=== PATIENT | female | born 1975 | race African-American/Black ===

== ENCOUNTER 2019-06-29 21:50 | Inpatient (IN) | payer OTHER ==
--- NOTE | 2019-06-29 22:12 | PDOC ---
History of Present Illness - History of Present Illness Initial Comments: Ms. Connor is a 43 y/o female with PMH of HTN, s/p hysterectomy 2 weeks ago for fibroids, presenting today with fever of 103, chills, nausea, diffuse abdominal pain worse in the LUQ that started 1 day ago, with lower back pain when walking for the past 3 days, as well as dysuria for 1 week. Difficulty describing the type of pain. Denies bleeding, purulent discharge, or opening of incision. No other past surgeries. Two children born via vaginal delivery. DIRECTOR OF STUDENT FINANCIAL AID: Dr. Crowe, [facility] <Ascencion Gonzalez - Last Filed: 06/30/19 23:38> <Noemy Reyes - Last Filed: 07/02/19 16:03> - General Chief Complaint: Pain Stated Complaint: ABDOMINAL PAIN Time Seen by Provider: 06/29/19 21:53 Past History - Past Medical History COPD: No HTN: Yes Hypercholesterolemia: Yes - Suicide/Smoking/Psychosocial Hx Smoking History: Never smoked Have you smoked in the past 12 months: No Information on smoking cessation initiated: No Hx Alcohol Use: No Drug/Substance Use Hx: No <Ascencion Gonzalez - Last Filed: 06/30/19 23:38> <Noemy Reyes - Last Filed: 07/02/19 16:03> - Past Medical History Allergies/Adverse Reactions: Allergies Allergy/AdvReac Type Severity Reaction Status Date / Time No Known Allergies Allergy Verified 06/29/19 22:06 Home Medications: Ambulatory Orders Amlodipine Besylate [Norvasc -] 10 mg PO DAILY 06/30/19 Ferrous Sulfate 325 mg PO DAILY 06/30/19 Furosemide 40 mg PO DAILY 06/30/19 Review of Systems - Review of Systems Comments:: GENERAL/CONSTITUTIONAL: Reports fever and chills. HEAD, EYES, EARS, NOSE AND THROAT: No change in vision. No change in hearing. No sore throat. CARDIOVASCULAR: No chest pain or shortness of breath_ RESPIRATORY: Denies cough, hemoptysis_ GASTROINTESTINAL: Reports nausea. Denies vomiting. Denies diarrhea/ constipation. GENITOURINARY: Reports dysuria. Denies hematuria. MUSCULOSKELETAL: No joint or muscle swelling or pain. No neck or back pain._ SKIN: No rash_ NEUROLOGIC: No headache, vertigo, loss of consciousness. ENDOCRINE: No increased thirst. No abnormal weight change_ HEMATOLOGIC/LYMPHATIC: No anemia, easy bleeding, or history of blood clots._ ALLERGIC/IMMUNOLOGIC: No hives or skin allergy._ <Ascencion Gonzalez - Last Filed: 06/30/19 23:38> *Physical Exam - Vital Signs Last Vital Signs Temp Pulse Resp BP Pulse Ox 103.9 F H 96 H 16 148/85 100 06/29/19 21:50 06/29/19 21:50 06/29/19 21:50 06/29/19 21:50 06/29/19 21:50 - Physical Exam Comments: GENERAL: Awake, alert, and oriented to person/place/time, in no acute distress. HEAD: No signs of trauma, normocephalic, atraumatic _ EYES: PERRLA, EOMI, sclera anicteric, conjunctiva clear. ENT: Hearing grossly normal, nares patent, oropharynx clear without exudates. No uvular deviation. Moist mucosa. NECK: Normal ROM, supple, no lymphadenopathy, JVD, or masses. LUNGS: No distress, speaks in full sentences, clear to auscultation bilaterally. HEART: Regular rate and rhythm, normal S1 and S2, no murmurs appreciated, peripheral pulses normal and equal bilaterally._ ABDOMEN: Soft, TTP diffusely worse in the LUQ. Incision intact, no signs of bleeding or purulent discharge, erythema. BACK: No TTP lower midline back. EXTREMITIES: Normal inspection, Normal range of motion, no edema. No clubbing or cyanosis. NEUROLOGICAL: CN II-XII grossly intact. Cerebellar testing intact. SKIN: Warm to the touch, Dry, normal turgor, no rashes or lesions noted_ <Ascencion Gonzalez - Last Filed: 06/30/19 23:38> - Vital Signs Last Vital Signs Temp Pulse Resp BP Pulse Ox 99.1 F 75 18 133/87 99 07/02/19 14:48 07/02/19 14:48 07/02/19 14:48 07/02/19 14:48 07/02/19 09:00 <Noemy Reyes - Last Filed: 07/02/19 16:03> ED Treatment Course - LABORATORY CBC & Chemistry Diagram: 06/30/19 09:20 06/30/19 09:20 <Ascencion Gonzalez - Last Filed: 06/30/19 23:38> - LABORATORY CBC & Chemistry Diagram: 07/02/19 06:35 07/02/19 06:35 - ADDITIONAL ORDERS Additional order review: 06/29/19 23:00 Urine Culture - Final Urine - Urine Clean Catch Escherichia Coli 06/30/19 00:05 Blood Culture - Preliminary Blood - Peripheral Venous NO GROWTH OBTAINED AFTER 48 HOURS, INCUBATION TO CONTINUE FOR 3 DAYS. 06/30/19 00:05 Blood Culture - Preliminary Blood - Peripheral Venous NO GROWTH OBTAINED AFTER 48 HOURS, INCUBATION TO CONTINUE FOR 3 DAYS. 06/29/19 22:45 RBC 3.85 MCV 93.0 MCHC 32.8 RDW 13.4 MPV 8.7 Neutrophils % 86.0 H Lymphocytes % 9.3 Monocytes % 4.3 Eosinophils % 0.2 Basophils % 0.2 - Medications Given in the ED: ED Medications Discontinued Medications Generic Name Dose Route Start Last Admin Trade Name Freq PRN Reason Stop Dose Admin Acetaminophen 1,000 mg 06/29/19 23:48 06/30/19 00:00 Ofirmev Injection - IVPB 06/29/19 23:49 1,000 mg ONCE ONE Administration Piperacillin Sod/Tazobactam 100 mls @ 200 mls/hr 06/30/19 00:17 06/30/19 01: 42 Sod 4.5 gm/ Dextrose IVPB 06/30/19 00:46 200 mls/hr ONCE ONE Administration Protocol Vancomycin HCl 1,500 mg/ 250 mls @ 250 mls/2 hr 06/30/19 00:40 06/30/19 03:36 Dextrose IVPB 06/30/19 02:39 250 mls/2 hr ONCE ONE Administration Protocol Sodium Chloride 1,000 mls @ 1,000 mls/hr 06/30/19 00:41 06/30/19 03:36 Normal Saline - IV 06/30/19 01:40 1,000 mls/hr ASDIR STA Administration Sodium Chloride 1,000 mls @ 100 mls/hr 06/30/19 02:15 07/01/19 09:12 Normal Saline - IV 100 mls/hr ASDIR LUDWIG Administration Piperacillin Sod/Tazobactam 50 mls @ 100 mls/hr 06/30/19 10:00 06/30/19 16:45 Sod 3.375 gm/ Dextrose IVPB Not Given Q8H-IV LUDWIG Protocol Piperacillin Sod/Tazobactam 50 mls @ 100 mls/hr 06/30/19 10:00 06/30/19 10:17 Sod 3.375 gm/ Dextrose IVPB 07/01/19 02:29 100 mls/hr Q8H-IV LUDWIG Administration Ceftriaxone Sodium 1 gm/ 50 mls @ 100 mls/hr 06/30/19 14:15 06/30/19 16:44 Dextrose IVPB Not Given DAILY LUDWIG Protocol Piperacillin Sod/Tazobactam 50 mls @ 100 mls/hr 06/30/19 14:30 07/02/19 09:17 Sod 3.375 gm/ Dextrose IVPB 100 mls/hr Q8H-IV LUDWIG Administration Protocol Ketorolac Tromethamine 15 mg 06/30/19 01:29 06/30/19 03:36 Toradol Injection - IVPUSH 06/30/19 01:30 15 mg ONCE ONE Administration Ketorolac Tromethamine 15 mg 06/30/19 09:10 06/30/19 10:17 Toradol Injection - IVPUSH 06/30/19 09:11 15 mg ONCE ONE Administration Sodium Chloride 1,000 ml 06/29/19 23:48 06/30/19 00:04 Normal Saline - IV 06/29/19 23:49 1,000 ml ONCE ONE Administration <Noemy Reyes - Last Filed: 07/02/19 16:03> Medical Decision Making - Medical Decision Making 43F s/p hysterectomy 2 weeks ago presenting with 1 week of dysuria, 3 days of back pain worse when walking, and 1 day of fever (103), chills, nausea, diffuse abdominal pain worse in the LUQ. DDX includes UTI vs abscess vs sepsis vs pyelo vs intra-abdominal infection. Will draw CBC, CMP, coags, lactic, UA/UC, CXR, CT abd, EKG. 06/29/19 22:47 EKG NSR 93 bpm, no ST elevation/depression, no axis deviation, QTc 425 ms. 06/29/19 23:57 UA shows elevated leuk esterases. 06/30/19 00:16 Pt signed out to Dr. Marshall. <Ascencion Gonzalez - Last Filed: 06/30/19 23:38> *DC/Admit/Observation/Transfer <Ascencion Gonzalez - Last Filed: 06/30/19 23:38> - Discharge Dispostion Decision to Admit order: Yes <Noemy Reyes - Last Filed: 07/02/19 16:03> Diagnosis at time of Disposition: Complicated UTI (urinary tract infection) - Discharge Dispostion Condition at time of disposition: Stable
[2019-06-29 23:09] LABS: EPI CELLS 0.4 /HPF (0-5/HPF); HYALINE CASTS 1 /lpf (0-8); PH,URINE 5.5 (5.0-8.0); URINE APPEARANCE CLOUDY; URINE BILIRUBIN NEGATIVE (NEGATIVE); URINE COLOR YELLOW; URINE GLUCOSE (UA) NEGATIVE (NEGATIVE); URINE KETONE NEGATIVE (NEGATIVE); URINE LEUK ESTERASE 3+ (NEGATIVE); URINE NITRITE NEGATIVE (NEGATIVE); URINE PROTEIN TRACE (NEGATIVE); URINE RBC 5 /hpf (0-4); URINE UROBILINOGEN 0.2 mg/dL (0.2-1.0); URINE WBC 397 /hpf (0-5)
[2019-06-29 23:46] LABS: BASO % 0.2 % (0-2.0); EOS % 0.2 % (0-4.5); HEMATOCRIT 35.8 % (32.4-45.2); HEMOGLOBIN 11.7 GM/dL (10.7-15.3); LYMPH % 9.3 % (8-40); MCH 30.5 pg (25.7-33.7); MCHC 32.8 g/dl (32.0-36.0); MEAN PLT VOLUME 8.7 fl (7.5-11.1); MONO % 4.3 % (3.8-10.2); PLATELET COUNT 217 K/MM3 (134-434); RBC 3.85 M/mm3 (3.60-5.2); RDW 13.4 % (11.6-15.6); WHITE BLOOD COUNT 11.6 K/mm3 (4.0-10.0)
[2019-06-29] MEDS ORDERED: ACETAMINOPHEN 1000 MG/100 ML VIAL (NON FORMULARY) IVPB ONE (23:48)
[2019-06-29] MEDS ORDERED: SODIUM CHLORIDE 0.9% 500 ML INFUS.BAG IV ONE (23:48)
[2019-06-29 23:52] LABS: INR 1.25 (0.83-1.09); PROTHROMBIN TIME (PATIENT) 14.8 SEC (9.7-13.0)
[2019-06-29] MEDS ORDERED: ACETAMINOPHEN INJECTION 100 ML IVPB ONE (23:55)
[2019-06-30 00:12] LABS: ALBUMIN 3.1 g/dl (3.4-5.0); ALK PHOS 99 U/L (45-117); ANION GAP 9 MMOL/L (8-16); BILIRUBIN,TOTAL 0.9 mg/dL (0.2-1); BLOOD UREA NITROGEN 11.5 mg/dL (7-18); CALCIUM 8.9 mg/dL (8.5-10.1); CHLORIDE 103 mmol/L (98-107); CO2 26 mmol/L (21-32); CREATININE 0.8 mg/dL (0.55-1.3); GLUCOSE,RANDOM 133 mg/dL (74-106); POTASSIUM 3.6 mmol/L (3.5-5.1); SGOT/AST 48 U/L (15-37); SGPT/ALT 74 U/L (13-61); SODIUM 138 mmol/L (136-145); TOT PROT 7.3 g/dl (6.4-8.2)
--- NOTE | 2019-06-30 00:12 | PDOC ---
*Physical Exam - Vital Signs Last Vital Signs Temp Pulse Resp BP Pulse Ox 103.9 F H 96 H 16 148/85 100 06/29/19 21:50 06/29/19 21:50 06/29/19 21:50 06/29/19 21:50 06/29/19 21:50 - Physical Exam General Appearance: Yes: Nourished, Appropriately Dressed, Apparent Distress, Mild Distress Gastrointestinal/Abdominal: positive: Normal Bowel Sounds, Tender, Soft. negative: Pulsatile Mass ED Treatment Course - LABORATORY CBC & Chemistry Diagram: 06/29/19 22:45 06/29/19 22:45 - ADDITIONAL ORDERS Additional order review: Laboratory Results 06/29/19 06/29/19 06/29/19 23:00 22:45 22:45 PT with INR 14.80 H INR 1.25 H PTT (Actin FS) 33.4 Urine Color Yellow Urine Appearance Cloudy Urine pH 5.5 Ur Specific [place] 1.014 Urine Protein Trace Urine Glucose (UA) Negative Urine Ketones Negative Urine Blood 1+ H Urine Nitrite Negative Urine Bilirubin Negative Urine Urobilinogen 0.2 Ur Leukocyte Esterase 3+ H Urine WBC (Auto) 397 Urine RBC (Auto) 5 Urine Casts (Auto) 1 U Epithel Cells (Auto) 0.4 Urine Bacteria (Auto) 420.0 06/29/19 22:45 RBC 3.85 MCV 93.0 MCHC 32.8 RDW 13.4 MPV 8.7 Neutrophils % 86.0 H Lymphocytes % 9.3 Monocytes % 4.3 Eosinophils % 0.2 Basophils % 0.2 - Medications Given in the ED: ED Medications Discontinued Medications Generic Name Dose Route Start Last Admin Trade Name Amber PRN Reason Stop Dose Admin Sodium Chloride 1,000 ml 06/29/19 23:48 06/30/19 00:04 Normal Saline - IV 06/29/19 23:49 1,000 ml ONCE ONE Administration Medical Decision Making - Medical Decision Making 06/30/19 00:09 Sign out received from Dr. Gonzalez. 43 y/o F with hx HTN, recent hysterectomy 2 weeks ago p/w 1 week of dysuria, 3 days of acute back pain, and one day of fever to 103.9F, chills, diffuse abdominal pain worst in the LUQ. Plan: CT abdomen/pelvis given recent post-op period with fever and pain - pending Fever control with acetaminophen, fluids CMP pending Dispo: Admit 06/30/19 00:39 On reassessment, patient grimacing, clutching abdomen. She reports that the pain appears to be improving, but reports that she is "burning up" in regards to her fever. Patient brought to CT. Plan for additional fluid bolus. 06/30/19 01:39 CT negative for acute process. Notable for small amount of scattered abdominal wall edema, no abscess or hematoma. 06/30/19 On reassessment of her temperature - 99.5F CMP resulted - wnl. Given high initial fever with abdominal pain, plan for inpatient admission for complicated UTI. *DC/Admit/Observation/Transfer Diagnosis at time of Disposition: Complicated UTI (urinary tract infection) - Discharge Dispostion Condition at time of disposition: Stable Decision to Admit order: Yes - Referrals - Patient Instructions - Post Discharge Activity
[2019-06-30] MEDS ORDERED: PIPERACILLIN/TAZOB 4.5 GM 4.5 GM in DEXTROSE 5%-WATER 100 ML IVPB ONE (00:17)
--- NOTE | 2019-06-30 00:37 | PDOC ---
Documentation entered by Angela Sheffield SCRIBE, acting as scribe for Noemy Reyes MD. Noemy Reyes MD: This documentation has been prepared by the Nettie burdick Xhesika, SCRIBE, under my direction and personally reviewed by me in its entirety. I confirm that the documentation accurately reflects all work, treatment, procedures, and medical decision making performed by me. Attending Attestation - Resident Resident Name: CarlosAscencion - ED Attending Attestation I have performed the following: I have examined & evaluated the patient, The case was reviewed & discussed with the resident, I agree w/resident's findings & plan - HPI HPI: 06/29/19 22:47 The patient is a 43 year old female with a significant past medical history of HTN, HLD, and hysterectomy for fibroids (2 weeks ago, done at [facility]) who presents to the ED with LUQ and diffuse abdominal pain, chills, nausea and fever since yesterday. Patient states she has been endorsing 3-4 days of lower back pain associated with dysuria, worsened when walking. Denies chest pain, SOB, palpitations, dizziness, weakness, V, D, hematuria, frequency, bladder and bowel problems, leg swelling, No sick contacts or travel. No new changes in medications. Allergies: None Social history: Lives with family. No tobacco, ETOH or drug use. Meds: as documented in EMR - Physicial Exam PE: 06/29/19 22:48 Agree with the resident's HPI and PE as documented in the electronic medical record. NAD, EOMI, PERRL, nl conjunctiva, anicteric; neck supple. lungs clear, RRR, abdomen soft OBESE, diffusely tender, no CVAT. Back nontender. CLEARY x4, no focal neuro deficits. No peripheral edema. normal color for ethnicity, WWP. 06/30/19 00:35 - Medical Decision Making 06/30/19 00:35 See HPI for details. Prior notes reviewed, including admissions, discharges and consultations. Vital signs reviewed, +fever. normotensive, no tachy, Vital Signs Temp Pulse Resp BP Pulse Ox 103.9 F H 96 H 16 148/85 100 06/29/19 21:50 06/29/19 21:50 06/29/19 21:50 06/29/19 21:50 06/29/19 21:50 DDx abdominal pain: Sepsis, complicated intra abdominal infection, metabolic/ electrolyte derangements. GERD, PUD, esophageal spasm, pancreatitis, hepatitis, constipation, colitis, gastroenteritis, cholecystitis, UTI, pyelonephritis, medication side effect, hernia, appendicitis, diverticulitis, mesenteric ischemia. mesenteric adenitis, psoas abscess. laboratory results and imaging reviewed, basic labs and lytes wnl, notable for mild leukocytosis. LFTs unremarkable lactic normal, reassuring. UA_positive for WBCs and bacteria, treat as UTI, f/u urine cultures cxr unremarkable, no focal infection/opacity or edema EKG normal sinus rhythm, no interval abnormalities, narrow QRS, ST and T wave segments and morphology normal. Nonspecific T wave abnormalities ED course -interventions: IVF< antipyretics. IV zosyn for potential complicated UTI/intra abdominal infection in setting of recent hysterectomy. sepsis 2/2 UTI vs abdominal infection/abscess CT a/p with small pelvic ff, post operative changes s/p hysterectomy, no abscess or intra abdominal infection no flank or back pain to suggest pyelo, but could be early with SIRS/fever with risk of bacteremia with recent surgery. rpt VS improved, defervesced admit for complicated UTI with recent surgery, sepsis/SIRS criteria, f/u urine culture admit to hospitalist group. s/o Dr Amaya, medical management, supportive care, IV abx hydration. 06/30/19 01:27 06/30/19 01:29 06/30/19 02:30
[2019-06-30] MEDS ORDERED: VANCOMYCIN 1,500 MG in DEXTROSE 5%-WATER - 250 ML IVPB ONE (00:40)
[2019-06-30] MEDS ORDERED: SODIUM CHLORIDE 1,000 ML IV STA (00:41)
[2019-06-30] MEDS ORDERED: PIPERACILLIN/TAZOB 4.5 GM 4.5 GM/100 ML BAG IVPB ONE (01:21)
[2019-06-30] MEDS ORDERED: VANCOMYCIN 1 GRAM (PRE-DOCKED) 1,000 MG/250 ML BAG IVPB ONE (01:22)
[2019-06-30] MEDS ORDERED: KETOROLAC TROMETHAMINE 15 MG/ML VIAL IVPUSH ONE ×2 (01:29→09:10)
--- NOTE | 2019-06-30 03:10 | HP ---
CHIEF COMPLAINT: burning, frequency on urination, incontinence, fever PCP: Dr. Campbell Clinical Care Coordinator: Dr. Crowe HISTORY OF PRESENT ILLNESS: Sam Connor is a 43 year old female with a past medical history of hypertension, gestational diabetes, and recent hysterectomy (s/p 2 weeks ago), presenting with a week of dysuria, frequency, urgency, incomplete emptying, and a day's worth of fever and chills. Stated that she had abdominal pain in the suprapubic area and back pain. Also endorsed a headache, lightheadedness, nausea , and non-focal weakness. She denied chest pain, shortness of breath, vomiting, constipation, diarrhea, dizziness, numbness, tingling. Denied syncope or falls. She stated that she was taking tylenol and ibuprofen for the pain. Had a recorded temperature of 100.5 at home and was brought to the ED via ambulance after she did not want to deal with the pain anymore. ER course was notable for: (1) WBC 11.6, UA 3+ LE, 397 WBC, 420 bacteria, Temp 103.9 (2) Given Vancomycin, Zosyn, fluids, Ofirmev (3) CT showing scattered bowel wall edema, no abscess/hematomas noted PAST MEDICAL HISTORY: as above PAST SURGICAL HISTORY: open hysterectomy 2 weeks prior Social History: Smoking: denies Alcohol: social Drugs: denies Family History: father- DM Mother- HTN Allergies Stated has a PCN allergy with unknown reaction. Stated it was told to her years ago HOME MEDICATIONS: REVIEW OF SYSTEMS CONSTITUTIONAL: fever, chills, generalized weakness Absent: diaphoresis, malaise, loss of appetite, weight change HEENT: Absent: rhinorrhea, nasal congestion, throat pain, throat swelling, difficulty swallowing, mouth swelling, ear pain, eye pain, visual changes CARDIOVASCULAR: lightheadedness Absent: chest pain, syncope, palpitations, irregular heart rate, , peripheral edema RESPIRATORY: Absent: cough, shortness of breath, dyspnea with exertion, orthopnea, wheezing, stridor, hemoptysis GASTROINTESTINAL: abdominal pain (suprapubic), nausea Absent: abdominal distension, vomiting, diarrhea, constipation, GENITOURINARY: dysuria, frequency, urgency, flank pain Absent: hesitancy, hematuria, MUSCULOSKELETAL: back pain Absent: myalgia, arthralgia, joint swelling, neck pain SKIN: Absent: rash, itching, pallor HEMATOLOGIC/IMMUNOLOGIC: Absent: easy bleeding, easy bruising, lymphadenopathy, frequent infections ENDOCRINE: Absent: unexplained weight gain, unexplained weight loss, heat intolerance, cold intolerance NEUROLOGIC: headache Absent: focal weakness or paresthesias, dizziness, unsteady gait, seizure, mental status changes, bladder or bowel incontinence PSYCHIATRIC: Absent: anxiety, depression, suicidal or homicidal ideation, hallucinations. PHYSICAL EXAMINATION Vital Signs - 24 hr 06/29/19 06/30/19 21:50 01:43 Temperature 103.9 F H 99.5 F Pulse Rate 96 H Respiratory 16 Rate Blood Pressure 148/85 O2 Sat by Pulse 100 Oximetry (%) GENERAL: Awake, alert, and fully oriented, in no acute distress. HEAD: Normal with no signs of trauma. EYES: Pupils equal, round and reactive to light, extraocular movements intact, conjunctiva clear. EARS, NOSE, THROAT: Oropharynx clear without exudates. Moist mucous membranes. NECK: Normal range of motion, supple without lymphadenopathy, JVD, or masses. LUNGS: Breath sounds equal, clear to auscultation bilaterally. No wheezes, and no crackles. No accessory muscle use. HEART: Regular rate and rhythm, normal S1 and S2 without murmur, rub. ABDOMEN: Soft, tender in the suprapubic area, not distended, normoactive bowel sounds, no guarding, no rebound, no masses. MUSCULOSKELETAL: Normal range of motion at all joints. No bony deformities or tenderness. CVA tenderness on the L (Positive Sin punch) LOWER EXTREMITIES: 2+ pulses, warm, well-perfused. No calf tenderness. No peripheral edema. NEUROLOGICAL: Cranial nerves II-XII intact. Muscle strength 5/5 bilaterally upper and lower extremities. PSYCHIATRIC: Cooperative. Good eye contact. Appropriate mood and affect. SKIN: Warm, dry, normal turgor, no rashes or lesions noted. Laboratory Results - last 24 hr 06/29/19 06/29/19 06/29/19 22:45 22:45 22:45 WBC 11.6 H RBC 3.85 Hgb 11.7 Hct 35.8 MCV 93.0 MCH 30.5 MCHC 32.8 RDW 13.4 Plt Count 217 MPV 8.7 Absolute Neuts (auto) 10.0 H Neutrophils % 86.0 H Lymphocytes % 9.3 Monocytes % 4.3 Eosinophils % 0.2 Basophils % 0.2 Nucleated RBC % 0 PT with INR INR PTT (Actin FS) 33.4 Sodium 138 Potassium 3.6 Chloride 103 Carbon Dioxide 26 Anion Gap 9 BUN 11.5 Creatinine 0.8 Est GFR (CKD-EPI)AfAm 103.19 Est GFR (CKD-EPI)NonAf 89.04 Random Glucose 133 H Lactic Acid Calcium 8.9 Total Bilirubin 0.9 AST 48 H ALT 74 H Alkaline Phosphatase 99 Total Protein 7.3 Albumin 3.1 L Urine Color Urine Appearance Urine pH Ur Specific [place] Urine Protein Urine Glucose (UA) Urine Ketones Urine Blood Urine Nitrite Urine Bilirubin Urine Urobilinogen Ur Leukocyte Esterase Urine WBC (Auto) Urine RBC (Auto) Urine Casts (Auto) U Epithel Cells (Auto) Urine Bacteria (Auto) 06/29/19 06/29/19 06/30/19 22:45 23:00 00:05 WBC RBC Hgb Hct MCV MCH MCHC RDW Plt Count MPV Absolute Neuts (auto) Neutrophils % Lymphocytes % Monocytes % Eosinophils % Basophils % Nucleated RBC % PT with INR 14.80 H INR 1.25 H PTT (Actin FS) Sodium Potassium Chloride Carbon Dioxide Anion Gap BUN Creatinine Est GFR (CKD-EPI)AfAm Est GFR (CKD-EPI)NonAf Random Glucose Lactic Acid 1.0 Calcium Total Bilirubin AST ALT Alkaline Phosphatase Total Protein Albumin Urine Color Yellow Urine Appearance Cloudy Urine pH 5.5 Ur Specific [place] 1.014 Urine Protein Trace Urine Glucose (UA) Negative Urine Ketones Negative Urine Blood 1+ H Urine Nitrite Negative Urine Bilirubin Negative Urine Urobilinogen 0.2 Ur Leukocyte Esterase 3+ H Urine WBC (Auto) 397 Urine RBC (Auto) 5 Urine Casts (Auto) 1 U Epithel Cells (Auto) 0.4 Urine Bacteria (Auto) 420.0 EKG--> normal sinus rhythm, QTC 425 ASSESSMENT/PLAN: Sam Connor is a 43 year old female with a past medical history of hypertension, gestational diabetes, and recent hysterectomy (s/p 2 weeks ago) is admitted for a urinary tract infection likely with early pyelonephritis complicated by recent instrumentation. Complicated Urinary Tract Infection with Recent Instrumentation HTN Complicated Urinary Tract Infection - cannot rule out out gram positives and pseudomonals in the setting of recent instrumentation, CVA tenderness may be indicative of early pyelonephritis - CT scan with no indication of hematoma or abscess, showing post-op changes with scattered bowel wall edema - continue vancomycin - continue Zosyn - ID consultation, Dr. Stanley - continue NS @ 100cc/hr - continue tylenol for pain and fevers - blood and urine cultures pending - abd pelvic U/S HTN - continue home amlodipine 10mg daily - has Lasix 40mg as home med, however stated she does not take it any longer, confirm with pharmacy - can consider echo to evaluate for heart function FEN - NS @ 100cc/hr - continue to monitor electrolytes and replete as necessary - sodium controlled diet Prophylaxis - Lovenox 40mg daily Code - full code WU BERNAL DO - PGY-1 Visit type - Emergency Visit Emergency Visit: Yes ED Registration Date: 06/30/19 Care time: The patient presented to the Emergency Department on the above date and was hospitalized for further evaluation of their emergent condition. - New Patient This patient is new to me today: Yes Date on this admission: 06/30/19 - Critical Care Critical Care patient: No
[2019-06-30] MEDS ORDERED: KETOROLAC TROMETHAMINE 15 MG/ML VIAL ONE ×2 (03:25→10:15)
[2019-06-30] MEDS: SODIUM CHLORIDE 1,000 ML IV SCH ×3 (04:00→21:35)
--- NOTE | 2019-06-30 05:16 | PN ---
Teaching Attending Note Name of Resident: Dragan Morley ATTENDING PHYSICIAN STATEMENT I saw and evaluated the patient. I reviewed the resident's note and discussed the case with the resident. I agree with the resident's findings and plan as documented. Seen and examined; please see resident note for further historical information. Briefly, this is a 43 y/o female presenting to the ER with a CC of suprapubic pain and malaise; she is s/p recent hysterectomy. She is afebrile currently but did have a Tmax 103 and hemodynamiclly stable with WBC 11. VS, labs, imaging reviewed NAD, AAO, resting in bed Post op scar with SP tenderness noted; no rebound or guarding Abdomen itself is NT ND +BS RRR s1/2 CN2-12 wnl, no fnd Normal mood, appropriate behavior EKG reviewed CT shows on preliminary study diasteses recti and a fat containing umbilical hernia. She has mild postoperative pelvic edema and small amount of free fluid but no abscess or free air. Blood and urine cx pending ASSESSMENT AND PLAN: Patient presents for suprapubic pain s/p recent hysterectomy; does not get UTIs and this would be the first UTI she could recall. She has a positive UA and symptoms alongside a fever which has subsided. SIRS+ with source. Given recent pelvic instrumentation will cover broadly. Hyperglycemia mild but with obesity, etc. will check A1c and monitor. ID consult per protocol given abx choice. # Acute cystitis # Recent abdominal hysterectomy # Mild hyperglycemia # Obesity (BMI 39) # Mild transaminitis (will trend, consider MENON, consider RUQ US nonurgently)
--- NOTE | 2019-06-30 09:28 | EKG ---
Test Reason : Blood Pressure : / mmHG Vent. Rate : 093 BPM Atrial Rate : 093 BPM P-R Int : 148 ms QRS Dur : 072 ms QT Int : 342 ms P-R-T Axes : 010 051 024 degrees QTc Int : 425 ms NORMAL SINUS RHYTHM NORMAL ECG NO PREVIOUS ECGS AVAILABLE Confirmed by Ascencion Maya MD ([id number]) on 06/30/2019 9:27:55 AM Referred By: Confirmed By:Ascencion Maya MD
[2019-06-30 09:50] LABS: BASO % 0.2 % (0-2.0); EOS % 0.5 % (0-4.5); HEMATOCRIT 34.2 % (32.4-45.2); HEMOGLOBIN 11.3 GM/dL (10.7-15.3); MCH 30.8 pg (25.7-33.7); MCHC 33.2 g/dl (32.0-36.0); MEAN CELL VOLUME 92.9 fl (80-96); MEAN PLT VOLUME 8.6 fl (7.5-11.1); MONO % 5.5 % (3.8-10.2); NEUT % 84.8 % (42.8-82.8); PLATELET COUNT 199 K/MM3 (134-434); RBC 3.68 M/mm3 (3.60-5.2); RDW 13.5 % (11.6-15.6); WHITE BLOOD COUNT 9.5 K/mm3 (4.0-10.0)
[2019-06-30] MEDS ORDERED: PIPERACILLIN/TAZOB 3.375 GM 3.375 GM in DEXTROSE 5%-WATER - 50 ML IVPB SCH (10:00)
[2019-06-30] MEDS ORDERED: ENOXAPARIN NA (PORCINE) 40 MG/0.4 ML DISP.SYRIN SQ ONE (10:15)
[2019-06-30 10:16] LABS: ALBUMIN 2.7 g/dl (3.4-5.0); BILIRUBIN,TOTAL 1.3 mg/dL (0.2-1); BLOOD UREA NITROGEN 8.1 mg/dL (7-18); CALCIUM 8.4 mg/dL (8.5-10.1); CREATININE 0.8 mg/dL (0.55-1.3); POTASSIUM 3.5 mmol/L (3.5-5.1); TOT PROT 6.6 g/dl (6.4-8.2)
[2019-06-30] MEDS: ENOXAPARIN NA (PORCINE) 40 MG/0.4 ML DISP.SYRIN SQ SCH (10:17)
[2019-06-30 11:42] LABS: ERYTHROCYTE SEDIMENTATION RATE 54 mm/hr (0-20)
--- NOTE | 2019-06-30 14:12 | CON.ID ---
Consult Consult Specialty:: infectious diseases Referred by:: dr faye Reason for Consultation:: uti,hydronephrosis - History of Present Illness Chief Complaint: abd pain,uti History of Present Illness: 43 year old female with a past medical history of hypertension, gestational diabetes, and recent hysterectomy (s/p 2 weeks ago), presenting with a week of dysuria, frequency, urgency, incomplete emptying, and fever and chills. Stated that she had abdominal pain in the suprapubic area and back pain. Also endorsed a headache, lightheadedness, nausea, and non-focal weakness. She denied chest pain, shortness of breath, vomiting, constipation, diarrhea, dizziness, numbness , tingling. Denied syncope or falls. She stated that she was taking tylenol and ibuprofen for the pain. Had a recorded temperature of 100.5 at home and was brought to the ED via ambulance after she did not want to deal with the pain anymore. currently she still continues to have pain - History Source History Provided By: Patient Limitations to Obtaining History: No Limitations - Alcohol/Substance Use Hx Alcohol Use: No - Smoking History Smoking history: Never smoked Have you smoked in the past 12 months: No Home Medications - Allergies Allergies/Adverse Reactions: Allergies Allergy/AdvReac Type Severity Reaction Status Date / Time No Known Allergies Allergy Verified 06/29/19 22:06 - Home Medications Home Medications: Ambulatory Orders Amlodipine Besylate [Norvasc -] 10 mg PO DAILY 06/30/19 Ferrous Sulfate 325 mg PO DAILY 06/30/19 Furosemide 40 mg PO DAILY 06/30/19 Review of Systems - Review of Systems Constitutional: reports: Fever Eyes: reports: No Symptoms HENT: reports: No Symptoms Neck: reports: No Symptoms Cardiovascular: reports: No Symptoms Respiratory: reports: No Symptoms Gastrointestinal: reports: Abdominal Pain Genitourinary: reports: Burning, Dysuria Musculoskeletal: reports: No Symptoms Integumentary: reports: No Symptoms Neurological: reports: No Symptoms Endocrine: reports: No Symptoms Hematology/Lymphatic: reports: No Symptoms Psychiatric: reports: No Symptoms Physical Exam Vital Signs: Vital Signs Temperature 98.8 F 06/30/19 13:47 Pulse Rate 76 06/30/19 13:47 Respiratory Rate 20 06/30/19 13:47 Blood Pressure 133/74 06/30/19 13:47 O2 Sat by Pulse Oximetry (%) 98 06/30/19 13:47 Constitutional: Yes: Well Nourished, Calm, Mild Distress, Obese Eyes: Yes: Conjunctiva Clear HENT: Yes: Atraumatic, Normocephalic Neck: Yes: Supple, Trachea Midline Cardiovascular: Yes: Regular Rate and Rhythm Respiratory: Yes: Regular, CTA Bilaterally Gastrointestinal: Yes: Normal Bowel Sounds, Soft, Tenderness (suprapubic) Renal/: Yes: Other Musculoskeletal: Yes: WNL Extremities: Yes: WNL Neurological: Yes: Alert, Oriented Psychiatric: Yes: Alert, Oriented Labs: CBC, BMP 06/30/19 09:20 06/30/19 09:20 Imaging - Results Chest X-ray: Report Reviewed, Image Reviewed Cat Scan: Report Reviewed, Image Reviewed Assessment/Plan 43 year old female with a past medical history of hypertension, gestational diabetes, and recent hysterectomy (s/p 2 weeks ago) is admitted for a urinary tract infection likely with early pyelonephritis complicated by recent instrumentation. 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
[2019-06-30] MEDS ORDERED: CEFTRIAXONE 1 GM in DEXTROSE 5%-WATER - 50 ML IVPB SCH (14:15)
--- NOTE | 2019-06-30 15:01 | PN ---
Physical Exam: SUBJECTIVE: Patient seen and examined at the bedside. Patient looked to be in mild distress and expressed being in moderate amount of pain. Endorsing dysuria , increased urinary frequency, urgency, feeling of incomplete bladder emptying, fever, chills, abdominal pain in the suprapubic area and back pain. She denied chest pain, shortness of breath, vomiting, constipation, diarrhea, dizziness, numbness, tingling. OBJECTIVE: Vital Signs Period Temp Pulse Resp BP Sys/Morin Pulse Ox Last 24 Hr 98.6 F-103.9 F 76-96 16-20 110-148/54-85 97-100 GENERAL: The patient is awake, alert, and fully oriented, in no acute distress. HEAD: Normal with no signs of trauma. EYES: PERRL, extraocular movements intact, sclera anicteric, conjunctiva clear. No ptosis. ENT: Ears normal, nares patent, oropharynx clear without exudates, dry mucous membranes. NECK: Trachea midline, full range of motion, supple, mild JVD LUNGS: Breath sounds equal, clear to auscultation bilaterally, no wheezes, no crackles, no accessory muscle use. HEART: Regular rate and rhythm, S1, S2 without murmur, rub. ABDOMEN: Soft, diffusely mildly tender, nondistended, normoactive bowel sounds, no guarding, no rebound. MUSCULOSKELETAL: Normal range of motion at all joints. No bony deformities or tenderness. CVA tenderness on the L, 2+ pulses, warm, well-perfused, trace edema on bilateral lower extremity. NEUROLOGICAL: Cranial nerves II through XII grossly intact. Normal speech, gait not observed. PSYCH: Normal mood, normal affect. SKIN: Warm, dry, normal turgor, no rashes or lesions noted Laboratory Results - last 24 hr 06/29/19 06/29/19 06/29/19 22:45 22:45 22:45 WBC 11.6 H RBC 3.85 Hgb 11.7 Hct 35.8 MCV 93.0 MCH 30.5 MCHC 32.8 RDW 13.4 Plt Count 217 MPV 8.7 Absolute Neuts (auto) 10.0 H Neutrophils % 86.0 H Lymphocytes % 9.3 Monocytes % 4.3 Eosinophils % 0.2 Basophils % 0.2 Nucleated RBC % 0 ESR PT with INR INR PTT (Actin FS) 33.4 Sodium 138 Potassium 3.6 Chloride 103 Carbon Dioxide 26 Anion Gap 9 BUN 11.5 Creatinine 0.8 Est GFR (CKD-EPI)AfAm 103.19 Est GFR (CKD-EPI)NonAf 89.04 Random Glucose 133 H Hemoglobin A1c % Lactic Acid Calcium 8.9 Total Bilirubin 0.9 AST 48 H ALT 74 H Alkaline Phosphatase 99 Troponin I < 0.02 C-Reactive Protein Total Protein 7.3 Albumin 3.1 L Urine Color Urine Appearance Urine pH Ur Specific [place] Urine Protein Urine Glucose (UA) Urine Ketones Urine Blood Urine Nitrite Urine Bilirubin Urine Urobilinogen Ur Leukocyte Esterase Urine WBC (Auto) Urine RBC (Auto) Urine Casts (Auto) U Epithel Cells (Auto) Urine Bacteria (Auto) 06/29/19 06/29/19 06/30/19 22:45 23:00 00:05 WBC RBC Hgb Hct MCV MCH MCHC RDW Plt Count MPV Absolute Neuts (auto) Neutrophils % Lymphocytes % Monocytes % Eosinophils % Basophils % Nucleated RBC % ESR PT with INR 14.80 H INR 1.25 H PTT (Actin FS) Sodium Potassium Chloride Carbon Dioxide Anion Gap BUN Creatinine Est GFR (CKD-EPI)AfAm Est GFR (CKD-EPI)NonAf Random Glucose Hemoglobin A1c % Lactic Acid 1.0 Calcium Total Bilirubin AST ALT Alkaline Phosphatase Troponin I C-Reactive Protein Total Protein Albumin Urine Color Yellow Urine Appearance Cloudy Urine pH 5.5 Ur Specific [place] 1.014 Urine Protein Trace Urine Glucose (UA) Negative Urine Ketones Negative Urine Blood 1+ H Urine Nitrite Negative Urine Bilirubin Negative Urine Urobilinogen 0.2 Ur Leukocyte Esterase 3+ H Urine WBC (Auto) 397 Urine RBC (Auto) 5 Urine Casts (Auto) 1 U Epithel Cells (Auto) 0.4 Urine Bacteria (Auto) 420.0 06/30/19 06/30/19 06/30/19 09:20 09:20 09:20 WBC 9.5 RBC 3.68 Hgb 11.3 Hct 34.2 MCV 92.9 MCH 30.8 MCHC 33.2 RDW 13.5 Plt Count 199 MPV 8.6 Absolute Neuts (auto) 8.1 H Neutrophils % 84.8 H Lymphocytes % 9.0 Monocytes % 5.5 Eosinophils % 0.5 D Basophils % 0.2 Nucleated RBC % 0 ESR 54 H PT with INR INR PTT (Actin FS) Sodium 140 Potassium 3.5 Chloride 106 Carbon Dioxide 27 Anion Gap 7 L BUN 8.1 Creatinine 0.8 Est GFR (CKD-EPI)AfAm 103.19 Est GFR (CKD-EPI)NonAf 89.04 Random Glucose 183 H Hemoglobin A1c % 5.4 Lactic Acid Calcium 8.4 L Total Bilirubin 1.3 H AST 48 H ALT 71 H Alkaline Phosphatase 101 Troponin I C-Reactive Protein 15.4 H Total Protein 6.6 Albumin 2.7 L Urine Color Urine Appearance Urine pH Ur Specific [place] Urine Protein Urine Glucose (UA) Urine Ketones Urine Blood Urine Nitrite Urine Bilirubin Urine Urobilinogen Ur Leukocyte Esterase Urine WBC (Auto) Urine RBC (Auto) Urine Casts (Auto) U Epithel Cells (Auto) Urine Bacteria (Auto) Active Medications Generic Name Dose Route Start Last Admin Trade Name Freq PRN Reason Stop Dose Admin Enoxaparin Sodium 40 mg 06/30/19 10:00 06/30/19 10:17 Lovenox - SQ 40 mg DAILY LUDWIG Administration Sodium Chloride 1,000 mls @ 100 mls/hr 06/30/19 02:15 06/30/19 04:00 Normal Saline - IV 100 mls/hr ASDIR LUDWIG Administration Piperacillin Sod/Tazobactam 50 mls @ 100 mls/hr 06/30/19 14:30 Sod 3.375 gm/ Dextrose IVPB Q8H-IV LUDWIG Protocol ASSESSMENT/PLAN: Sam Connor is a 43 year old female with a past medical history of hypertension, gestational diabetes, and recent hysterectomy (2 weeks ago) admitted for a urinary tract infection likely with pyelonephritis complicated by recent instrumentation. 1. Sepsis 2/2 pyelonephritis cannot rule out out gram positives and pseudomonals in the setting of recent instrumentation, CVA tenderness indicative of pyelonephritis - Abdominal CT showing dilated proximal small bowel to 3cm with air fluid levels , potentially 2/2 SBO or Ileus. Renal hydronephrosis and hyrdoureter with fat stranding in the surrounding area and L side ureteritis. - Will Consult Urology for recommendations -Abd U/S showing fatty infiltrate of liver - Discontinuing vancomycin - continue Zosyn - ID consultation, Dr. Stanley following, appreciate recommendations - continue NS @ 100cc/hr - continue tylenol for pain and fevers - F/U blood and urine cultures - F/U afternoon CBC and BMP 2. HTN - continue home amlodipine 10mg daily - has Lasix 40mg as home med, confirmed with pharmacy holding for now as patient is volume depleted and in sepsis. FEN - NS @ 100cc/hr - continue to monitor electrolytes and replete as necessary - sodium controlled diet Prophylaxis - Lovenox 40mg daily Code - full code Visit type - Emergency Visit Emergency Visit: Yes ED Registration Date: 06/30/19 Care time: The patient presented to the Emergency Department on the above date and was hospitalized for further evaluation of their emergent condition. - New Patient This patient is new to me today: Yes Date on this admission: 06/30/19 - Critical Care Critical Care patient: No ATTENDING PHYSICIAN STATEMENT I saw and evaluated the patient. I reviewed the resident's note and discussed the case with the resident. I agree with the resident's findings and plan as documented. SUBJECTIVE: OBJECTIVE: ASSESSMENT AND PLAN:
--- NOTE | 2019-06-30 15:18 | PN ---
Teaching Attending Note Name of Resident: Bibiana Perez ATTENDING PHYSICIAN STATEMENT I saw and evaluated the patient. I reviewed the resident's note and discussed the case with the resident. I agree with the resident's findings and plan as documented. SUBJECTIVE: abd pain, does not feel well . no N/V. OBJECTIVE: NAD, looks ill dry MM. minimal bulge in L neck vessels CV: RRR, 3/6 Sm at LLSb and LUSB. lungs: CTAB ext no erythema, has trace edema on feet. Abd: soft, TTP in suprapubic area and both lower quardrants . L CVA tenderness. horizintal scar in suprapubic area with good healing ASSESSMENT AND PLAN: 43 y/o lady with h/o recent hysterectomy for fibroids, HTN, gestational DM , who presented with abd pain and fever. she was found to have sepsis from UTI. 1- Sepsis 2/2 UTI and L pyelonephritis . CT scan image and report reviewed. L hydro with hypodense areas in kidney and L hydroureter, but no stones. L pelvic wall collection - cont zosyn. d/w Dr. Stanley - called urology, to evaluate .? stenting - will call HOSIERY LOOPER to evaluate the pelvic wall collection - follow blood cx and urine cx - Hold BP medication fro now - give IVF. no signs of heart failure despite elevated BNP. she looks volume depleted. mild jvd might be due to TR as murmur heard o n exam . 2- H/o HTN: hold norvasc and monitor BP. can resume when needed 3- possible ileus vs early SBO. monitor abd exam. NPO for now. dawood assess diet resumption tomorrow 4- Transaminitis : likley due tfatty liver and from sepsis. no cholestatic picture. DVT Px
[2019-06-30] MEDS ORDERED: DEXTROSE 5%-WATER - 50 ML IVPB ONE (15:23)
[2019-06-30] MEDS ORDERED: PIPERACILLIN/TAZOBACTAM 3.375 GM VIAL IVPB ONE (15:23)
[2019-06-30] MEDS: PIPERACILLIN/TAZOB 3.375 GM 3.375 GM in DEXTROSE 5%-WATER - 50 ML IVPB SCH ×2 (15:53→17:10)
--- NOTE | 2019-06-30 18:25 | CON.OBG ---
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 pt does not know if tubes & or ovaries were removed pt was discharged on 06/18/19 late at night . Indication for hys was Large fibroids with menometrorrahgia & anemia h/ofibroids known to her for 10 years her postop course was uneventful in the hosp & for 1St one week at home she was discharged on PO ibuprofen , acetaminophen & codeine . 1 week ago she stated having dysuria , she thought it was due to surgery 1 week ago she started having fever , tylenol was helping her 3 days ago she felt chills 7 high fever , constant dysuria , pain in lower abdomen She had no problem with BM. she was having regular BM. 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 No: Constipation, GERD Hepatobiliary: No: Cirrhosis, Cholelithiasis, Cholecystitis, Choledocholithiasis , Hepatitis A, Hepatitis B, Hepatitis C, Other Renal/: Yes: UTI Reproductive: Yes: Fibroids (operated Supracervical hys ) ...: No ...: 6 ( , 4 & 2 Sp Ab, 1 In Ab ) ...Para: 2 (2 01/1995, & LD 12/06/2008 h/o Gdm ) Heme/Onc: Yes: Anemia Infectious Disease: Yes: Other (denies any std ) Psych: Yes: Other (denies mental health problems ) Endocrine: Yes: Other (h/o GDM in 2009 pregn , ) - Past Surgical History Past Surgical History: Yes: Hysterectomy (supracervical Hys 06/16/2019 at [facility] for fibroids ) - Alcohol/Substance Use Hx Alcohol Use: No History of Substance Use: reports: None - Smoking History Smoking history: Never smoked Have you smoked in the past 12 months: No Home Medications - Allergies Allergies/Adverse Reactions: Allergies Allergy/AdvReac Type Severity Reaction Status Date / Time No Known Allergies Allergy Verified 06/29/19 22:06 - Home Medications Home Medications: Ambulatory Orders Amlodipine Besylate [Norvasc -] 10 mg PO DAILY 06/30/19 Ferrous Sulfate 325 mg PO DAILY 06/30/19 Furosemide 40 mg PO DAILY 06/30/19 Physical Exam-E [employer] Vital Signs: Vital Signs Temperature 98.8 F 06/30/19 13:47 Pulse Rate 76 06/30/19 13:47 Respiratory Rate 20 06/30/19 13:47 Blood Pressure 133/74 06/30/19 13:47 O2 Sat by Pulse Oximetry (%) 98 06/30/19 13:47 Selected Entries 06/29/19 06/30/19 06/30/19 21:50 07:56 13:47 Temperature 103.9 F H 101.6 F H Pulse Rate 96 H Pulse Rate [ 86 Right Radial] Blood Pressure 148/85 Blood Pressure 127/54 L [Left Arm] Weight 242 lb 11.2 oz Constitutional: Yes: Moderate Distress (scale 8/10), Obese Eyes: Yes: WNL HENT: Yes: WNL, Normocephalic Neck: Yes: WNL Cardiovascular: Yes: WNL Respiratory: Yes: WNL, CTA Bilaterally Gastrointestinal: Yes: WNL, Normal Bowel Sounds, Abdomen, Obese, Other ( tenderness lower abdomen). No: Hyperactive Bowel Sounds, Hypoactive Bowel Sounds ...Rectal Exam: Yes: WNL Renal/: No: CVA Tenderness - Left, CVA Tenderness - Right, Vaginal Bleeding, Vaginal Discharge Pelvis: Yes: WNL, Tenderness (lower abdomen , no mass palpable) External Genitalia: Yes: Normal Internal Exam Deferred: Yes Vaginal Exam: Yes: Normal Cervix: Yes: Normal. No: Bleeding, Cerv Motion Tenderness, Discharge Uterus: Yes: Other (s/p spracervical hys) Adnexa: Tender: Bilateral Breast(s): Yes: Other (not examined) Musculoskeletal: Yes: WNL Extremities: Yes: WNL. No: Calf Tenderness Edema: No Integumentary: Yes: Incision (pfannesteil incision) Wound/Incision: Yes: Well Approximated, Steri Strips (dirty .), Open to air, Other (wound cleaned with alcohol). No: Reddened, Bleeding, Excoriated Neurological: Yes: WNL ...Motor Strength: WNL Psychiatric: Yes: WNL, Alert, Oriented Labs: CBC, BMP 06/30/19 09:20 06/30/19 09:20 Laboratory Tests 06/29/19 23:00 Urine Color Yellow Urine Appearance Cloudy Urine pH 5.5 Ur Specific [place] 1.014 Urine Protein Trace Urine Glucose (UA) Negative Urine Ketones Negative Urine Blood 1+ H Urine Nitrite Negative Urine Bilirubin Negative Urine Urobilinogen 0.2 Ur Leukocyte Esterase 3+ H Urine WBC (Auto) 397 Urine RBC (Auto) 5 Urine Casts (Auto) 1 U Epithel Cells (Auto) 0.4 Urine Bacteria (Auto) 420.0 Problem List - Problems (1) Complicated UTI (urinary tract infection) Code(s): N39.0 - URINARY TRACT INFECTION, SITE NOT SPECIFIED (2) S/P abdominal supracervical subtotal hysterectomy Code(s): Z90.711 - ACQUIRED ABSENCE OF UTERUS WITH REMAINING CERVICAL STUMP (3) Chronic hypertension Code(s): I10 - ESSENTIAL (PRIMARY) HYPERTENSION Assessment/Plan 43 yrs , s/p Supracervicl Hys , Post op 2weeks in [place], possible UTI ( ac pyelonephritis ) responding to iv Zosyn temp max in AM today 101.5 Ct scan -lt hydronephrosis & lt hydroureter mild , may be secondary to inflamation & edema in adnexal area due to recent surgery Ureter injury clinically I do not suspect , pt passing large amount of urine , no tenderness in lT flank clinically no picture of bowel obstruction is noted as seen on Ct scan BS are normal, she is passing flatus, no vomiting I doubt about abscess in pelvis pt does not know if her ovaries are removed or not Recommend : ct iv antibiotics keep i/o chart , help in r/o ureter injury obtain op report & pathology report from the hosp she had surgery
[2019-06-30] MEDS: oxyCODONE HCL 5 MG TABLET PO PRN (18:26)
[2019-06-30] MEDS: ACETAMINOPHEN 325 MG TABLET (FP) PO PRN (20:14)
[2019-07-01] MEDS ORDERED: PIPERACILLIN/TAZOBACTAM 3.375 GM VIAL IVPB ONE ×3 (01:53→17:06)
[2019-07-01] MEDS ORDERED: DEXTROSE 5%-WATER - 50 ML IVPB ONE ×3 (01:54→17:06)
[2019-07-01] MEDS: ACETAMINOPHEN 325 MG TABLET (FP) PO PRN ×2 (01:55→21:31)
[2019-07-01] MEDS: PIPERACILLIN/TAZOB 3.375 GM 3.375 GM in DEXTROSE 5%-WATER - 50 ML IVPB SCH ×3 (01:55→17:30)
[2019-07-01] MEDS: oxyCODONE HCL 5 MG TABLET PO PRN ×2 (01:56→16:22)
[2019-07-01 08:24] LABS: BASO % 0.4 % (0-2.0); EOS % 0.8 % (0-4.5); HEMATOCRIT 32.8 % (32.4-45.2); HEMOGLOBIN 10.8 GM/dL (10.7-15.3); LYMPH % 19.8 % (8-40); MCH 30.7 pg (25.7-33.7); MCHC 32.9 g/dl (32.0-36.0); MEAN CELL VOLUME 93.3 fl (80-96); MEAN PLT VOLUME 8.8 fl (7.5-11.1); MONO % 6.8 % (3.8-10.2); NEUT % 72.2 % (42.8-82.8); PLATELET COUNT 193 K/MM3 (134-434); RBC 3.52 M/mm3 (3.60-5.2); RDW 12.9 % (11.6-15.6); WHITE BLOOD COUNT 6.6 K/mm3 (4.0-10.0)
[2019-07-01 08:59] LABS: ALBUMIN 2.4 g/dl (3.4-5.0); BILIRUBIN,TOTAL 0.8 mg/dL (0.2-1); BLOOD UREA NITROGEN 4.4 mg/dL (7-18); CALCIUM 8.5 mg/dL (8.5-10.1); CREATININE 0.6 mg/dL (0.55-1.3); MAGNESIUM 2.2 mg/dL (1.8-2.4); POTASSIUM 3.3 mmol/L (3.5-5.1); TOT PROT 6.3 g/dl (6.4-8.2)
[2019-07-01] MEDS: SODIUM CHLORIDE 1,000 ML IV SCH (09:12)
[2019-07-01] MEDS: ENOXAPARIN NA (PORCINE) 40 MG/0.4 ML DISP.SYRIN SQ SCH (09:26)
[2019-07-01] MEDS: POTASSIUM CHLORIDE 40 MEQ in SODIUM CHLORIDE 1,000 ML IVPB SCH ×2 (13:00→20:50)
[2019-07-01] MEDS ORDERED: PT OWN MED DRAWER 7, Y5N ONE (13:55)
--- NOTE | 2019-07-01 15:02 | PN ---
Progress Note (short form) - Note Progress Note: Patient with UTI/pyelonephritis after hysterectomy. CT scan consistent with the same, no high grade or post operative obstruction suggested on scan, treat with antibiotics.
--- NOTE | 2019-07-01 16:17 | PN ---
Physical Exam: SUBJECTIVE: Patient seen and examined at the bedside. Spiked fever to 102.9 overnight, responsive to tylenol. States her abdominal and flank pain is improved and the only pain she currently has is "hunger pangs". Patient is currently NPO. OBJECTIVE: Vital Signs Period Temp Pulse Resp BP Sys/Morin Pulse Ox Last 24 Hr 99.2 F-102.0 F 78-86 18-20 118-150/67-90 98-98 GENERAL: The patient is awake, alert, and fully oriented, in no acute distress. HEAD: Normal with no signs of trauma. EYES: PERRL, extraocular movements intact, sclera anicteric, conjunctiva clear. No ptosis. ENT: Ears normal, nares patent, oropharynx clear without exudates, dry mucous membranes. NECK: Trachea midline, full range of motion, supple, mild JVD LUNGS: Breath sounds equal, clear to auscultation bilaterally, no wheezes, no crackles, no accessory muscle use. HEART: Regular rate and rhythm, S1, S2 with tricuspid murmur (patient confirms she has always had this). ABDOMEN: Soft, diffusely mildly tender, nondistended, normoactive bowel sounds, no guarding, no rebound. MUSCULOSKELETAL: Normal range of motion at all joints. No bony deformities or tenderness. No CVA tenderness, 2+ pulses, warm, well-perfused, trace edema on bilateral lower extremity. NEUROLOGICAL: Cranial nerves II through XII grossly intact. Normal speech, gait not observed. PSYCH: Normal mood, normal affect. SKIN: Warm, dry, normal turgor, no rashes or lesions noted Laboratory Results - last 24 hr 07/01/19 07/01/19 07:08 07:08 WBC 6.6 RBC 3.52 L Hgb 10.8 Hct 32.8 MCV 93.3 MCH 30.7 MCHC 32.9 RDW 12.9 Plt Count 193 MPV 8.8 Absolute Neuts (auto) 4.8 Neutrophils % 72.2 Lymphocytes % 19.8 D Monocytes % 6.8 Eosinophils % 0.8 Basophils % 0.4 Nucleated RBC % 0 Sodium 142 Potassium 3.3 L Chloride 109 H Carbon Dioxide 26 Anion Gap 6 L BUN 4.4 L Creatinine 0.6 Est GFR (CKD-EPI)AfAm 127.58 Est GFR (CKD-EPI)NonAf 110.08 Random Glucose 99 Calcium 8.5 Magnesium 2.2 Total Bilirubin 0.8 AST 24 ALT 50 Alkaline Phosphatase 103 Total Protein 6.3 L Albumin 2.4 L Active Medications Generic Name Dose Route Start Last Admin Trade Name Sharq PRN Reason Stop Dose Admin Acetaminophen 650 mg 06/30/19 20:07 07/01/19 01:55 Tylenol - PO 650 mg Q6H PRN Administration FEVER Enoxaparin Sodium 40 mg 06/30/19 10:00 07/01/19 09:26 Lovenox - SQ 40 mg DAILY LUDWIG Administration Piperacillin Sod/Tazobactam 50 mls @ 100 mls/hr 06/30/19 14:30 07/01/19 09:26 Sod 3.375 gm/ Dextrose IVPB 100 mls/hr Q8H-IV LUDWIG Administration Protocol Potassium Chloride 40 meq/ 1,020 mls @ 100 mls/hr 07/01/19 11:08 07/01/19 13: 00 Sodium Chloride IVPB 100 mls/hr Q10H LUDWIG Administration Oxycodone HCl 5 mg 06/30/19 18:04 07/01/19 01:56 Roxicodone - PO 5 mg Q6H PRN Administration PAIN LEVEL 6-10 Imaging: - Abdominal CT showing dilated proximal small bowel to 3cm with air fluid levels , potentially 2/2 SBO or Ileus. Renal hydronephrosis and hyrdoureter with fat stranding in the surrounding area and L side ureteritis. -Abd U/S showing fatty infiltrate of liver ASSESSMENT/PLAN: Sam Connor is a 43 year old female with a past medical history of hypertension, gestational diabetes, and recent hysterectomy (2 weeks ago) admitted for a urinary tract infection likely with pyelonephritis complicated by recent instrumentation. 1. Sepsis 2/2 UTI/ pyelonephritis - responding to Zosyn - continue Zosyn - ID consultation, Dr. Stanley following, appreciate recommendations - Strict Is+Os - continue NS @ 100cc/hr - continue tylenol for pain and fevers - F/U blood and urine cultures - F/U morning labs - HEEL SEWER consulted (Dr. Bocanegra), recommendations appreciated - Per Dr. Bocanegra L sided hydronephrosis and hydroureter noted on CT may be secondary to post-op inflamation & edema in adnexal area. Not concerned for ureter injury as pt passing large amount of urine and does not have tenderness in L flank. - will continue strict IsOs - will obtain op report & pathology report from the hospital where the patient had surgery -Urology consulted (Dr. Merchant), recommendations appreciated 2. HTN - continue home amlodipine 10mg daily - has Lasix 40mg as home med, confirmed with pharmacy holding for now as patient is volume depleted and in sepsis. FEN - NS @ 100cc/hr - continue to monitor electrolytes and replete as necessary - sodium controlled diet Prophylaxis - Lovenox 40mg daily Code - full code Visit type - Emergency Visit Emergency Visit: Yes ED Registration Date: 06/30/19 Care time: The patient presented to the Emergency Department on the above date and was hospitalized for further evaluation of their emergent condition. - New Patient This patient is new to me today: No - Critical Care Critical Care patient: No - Discharge Referral Referred to [facility] Yes ATTENDING PHYSICIAN STATEMENT I saw and evaluated the patient. I reviewed the resident's note and discussed the case with the resident. I agree with the resident's findings and plan as documented. SUBJECTIVE: OBJECTIVE: ASSESSMENT AND PLAN:
--- NOTE | 2019-07-01 18:12 | PN ---
Progress Note, Physician History of Present Illness: feels much better today still weak - Current Medication List Current Medications: Active Medications Acetaminophen (Tylenol -) 650 mg PO Q6H PRN PRN Reason: FEVER Last Admin: 07/01/19 01:55 Dose: 650 mg Enoxaparin Sodium (Lovenox -) 40 mg SQ DAILY LUDWIG Last Admin: 07/01/19 09:26 Dose: 40 mg Piperacillin Sod/Tazobactam (Sod 3.375 gm/ Dextrose) 50 mls @ 100 mls/hr IVPB Q8H-IV LUDWIG; Protocol Last Admin: 07/01/19 17:30 Dose: 100 mls/hr Potassium Chloride 40 meq/ (Sodium Chloride) 1,020 mls @ 100 mls/hr IVPB Q10H LUDWIG Last Admin: 07/01/19 13:00 Dose: 100 mls/hr Oxycodone HCl (Roxicodone -) 5 mg PO Q6H PRN PRN Reason: PAIN LEVEL 6-10 Last Admin: 07/01/19 16:22 Dose: 5 mg - Objective Vital Signs: Vital Signs Temperature 99.3 F 07/01/19 14:32 Pulse Rate 83 07/01/19 14:32 Respiratory Rate 18 07/01/19 14:32 Blood Pressure 118/67 07/01/19 14:32 O2 Sat by Pulse Oximetry (%) 98 07/01/19 09:00 Constitutional: Yes: No Distress, Calm, Obese Cardiovascular: Yes: Regular Rate and Rhythm Respiratory: Yes: Regular, CTA Bilaterally Gastrointestinal: Yes: Normal Bowel Sounds, Soft Musculoskeletal: Yes: WNL Extremities: Yes: WNL Neurological: Yes: Alert, Oriented Psychiatric: Yes: Alert, Oriented Labs: CBC, BMP 07/01/19 07:08 07/01/19 07:08 INR, PTT INR 1.25 (0.83-1.09) H 06/29/19 22:45 Assessment/Plan 43 year old female with a past medical history of hypertension, gestational diabetes, and recent hysterectomy (s/p 2 weeks ago) is admitted for a urinary tract infection likely with early pyelonephritis complicated by recent instrumentation. Complicated Urinary Tract Infection HTN abd pain dysuria hydro plan continue abx hydration rest as per the team
--- NOTE | 2019-07-01 18:47 | PN ---
Teaching Attending Note Name of Resident: Felisha Schneider ATTENDING PHYSICIAN STATEMENT I saw and evaluated the patient. I reviewed the resident's note and discussed the case with the resident. I agree with the resident's findings and plan as documented. SUBJECTIVE: Patient is comfortable with no acute distress, no fever at this time. urgency and frequency is improving. OBJECTIVE: Vital Signs Temperature 99.3 F 07/01/19 14:32 Pulse Rate 83 07/01/19 14:32 Respiratory Rate 18 07/01/19 14:32 Blood Pressure 118/67 07/01/19 14:32 O2 Sat by Pulse Oximetry (%) 98 07/01/19 09:00 GENERAL: The patient is awake, alert, and fully oriented, in no acute distress. HEAD: Normal with no signs of trauma. EYES: PERRL, extraocular movements intact, sclera anicteric, conjunctiva clear. ENT: Ears normal, oropharynx clear without exudates, moist mucous membranes. NECK: Trachea midline, full range of motion, supple. LUNGS: Breath sounds equal, clear to auscultation bilaterally, no wheezes, no crackles, no accessory muscle use. HEART: Regular rate and rhythm, S1, S2 without murmur, rub or gallop. ABDOMEN: Soft, NT, ND, normoactive bowel sounds, no guarding, no rebound, no hepatosplenomegaly, no masses. EXTREMITIES: 2+ pulses, warm, well-perfused, no edema. NEUROLOGICAL: Cranial nerves II through XII grossly intact. Normal speech, gait not observed. PSYCH: Normal mood, normal affect. SKIN: Warm, dry, normal turgor, no rashes or lesions noted CBCD WBC 6.6 K/mm3 (4.0-10.0) 07/01/19 07:08 RBC 3.52 M/mm3 (3.60-5.2) L 07/01/19 07:08 Hgb 10.8 GM/dL (10.7-15.3) 07/01/19 07:08 Hct 32.8 % (32.4-45.2) 07/01/19 07:08 MCV 93.3 fl (80-96) 07/01/19 07:08 MCHC 32.9 g/dl (32.0-36.0) 07/01/19 07:08 RDW 12.9 % (11.6-15.6) 07/01/19 07:08 Plt Count 193 K/MM3 (134-434) 07/01/19 07:08 MPV 8.8 fl (7.5-11.1) 07/01/19 07:08 CMP Sodium 142 mmol/L (136-145) 07/01/19 07:08 Potassium 3.3 mmol/L (3.5-5.1) L 07/01/19 07:08 Chloride 109 mmol/L (98-107) H 07/01/19 07:08 Carbon Dioxide 26 mmol/L (21-32) 07/01/19 07:08 Anion Gap 6 MMOL/L (8-16) L 07/01/19 07:08 BUN 4.4 mg/dL (7-18) L 07/01/19 07:08 Creatinine 0.6 mg/dL (0.55-1.3) 07/01/19 07:08 Random Glucose 99 mg/dL (74-106) 07/01/19 07:08 Calcium 8.5 mg/dL (8.5-10.1) 07/01/19 07:08 Total Bilirubin 0.8 mg/dL (0.2-1) 07/01/19 07:08 AST 24 U/L (15-37) 07/01/19 07:08 ALT 50 U/L (13-61) 07/01/19 07:08 Alkaline Phosphatase 103 U/L (45-117) 07/01/19 07:08 Total Protein 6.3 g/dl (6.4-8.2) L 07/01/19 07:08 Albumin 2.4 g/dl (3.4-5.0) L 07/01/19 07:08 CARDIAC ENZYMES Troponin I < 0.02 ng/ml (0.00-0.05) 06/29/19 22:45 Current Medications Generic Name Dose Route Start Last Admin Trade Name Freq PRN Reason Stop Dose Admin Acetaminophen 650 mg 06/30/19 20:07 07/01/19 01:55 Tylenol - PO 650 mg Q6H PRN Administration FEVER Enoxaparin Sodium 40 mg 06/30/19 10:00 07/01/19 09:26 Lovenox - SQ 40 mg DAILY LUDWIG Administration Piperacillin Sod/Tazobactam 50 mls @ 100 mls/hr 06/30/19 14:30 07/01/19 17:30 Sod 3.375 gm/ Dextrose IVPB 100 mls/hr Q8H-IV LUDWIG Administration Protocol Potassium Chloride 40 meq/ 1,020 mls @ 100 mls/hr 07/01/19 11:08 07/01/19 13: 00 Sodium Chloride IVPB 100 mls/hr Q10H LUDWIG Administration Oxycodone HCl 5 mg 06/30/19 18:04 07/01/19 16:22 Roxicodone - PO 5 mg Q6H PRN Administration PAIN LEVEL 6-10 Home Medications Medication Instructions Recorded Amlodipine Besylate [Norvasc -] 10 mg PO DAILY 06/30/19 Ferrous Sulfate 325 mg PO DAILY 06/30/19 Furosemide 40 mg PO DAILY 06/30/19 Microbiology 06/30/19 18:00 Vaginal Gram Stain - Final 06/29/19 23:00 Urine - Urine Clean Catch Urine Culture - Preliminary Lactose Fermenting Neg Bacilli 06/30/19 00:05 Blood - Peripheral Venous Blood Culture - Preliminary NO GROWTH OBTAINED AFTER 24 HOURS, INCUBATION TO CONTINUE FOR 4 DAYS. 06/30/19 00:05 Blood - Peripheral Venous Blood Culture - Preliminary NO GROWTH OBTAINED AFTER 24 HOURS, INCUBATION TO CONTINUE FOR [address] of abdomen and pelvis: L hydro with hypodense areas in kidney and L hydroureter, but no stones. L pelvic wall collection ASSESSMENT AND PLAN: Patient is a 43 y/o lady with PMhx of recent hysterectomy due to having fibroids , HTN, gestational DM , who presented with abdominal pain and fever. she was found to have sepsis from UTI/Pylonephritis. # Acute sepsis due to having UTI and L pyelonephritis. On IV zosyn continue. Dr. Stanley on the case , as per urologist for further intervention surgically if needed. # H/o HTN: hold norvasc and monitor BP. can resume when needed # Acute Transaminitis : improved #Hypokalemia: replete DVt Px: Lovenox
[2019-07-02] MEDS ORDERED: PIPERACILLIN/TAZOBACTAM 3.375 GM VIAL IVPB ONE ×2 (00:53→09:06)
[2019-07-02] MEDS ORDERED: DEXTROSE 5%-WATER - 50 ML IVPB ONE ×2 (00:53→09:06)
[2019-07-02] MEDS: PIPERACILLIN/TAZOB 3.375 GM 3.375 GM in DEXTROSE 5%-WATER - 50 ML IVPB SCH ×2 (02:20→09:17)
[2019-07-02 07:21] LABS: HEMATOCRIT 32.9 % (32.4-45.2); HEMOGLOBIN 10.9 GM/dL (10.7-15.3); MCH 30.6 pg (25.7-33.7); MCHC 33.1 g/dl (32.0-36.0); MEAN CELL VOLUME 92.4 fl (80-96); MEAN PLT VOLUME 8.9 fl (7.5-11.1); PLATELET COUNT 220 K/MM3 (134-434); RBC 3.56 M/mm3 (3.60-5.2); RDW 13.1 % (11.6-15.6); WHITE BLOOD COUNT 5.7 K/mm3 (4.0-10.0)
[2019-07-02 07:36] LABS: BLOOD UREA NITROGEN 4.4 mg/dL (7-18); CALCIUM 8.6 mg/dL (8.5-10.1); CREATININE 0.7 mg/dL (0.55-1.3); POTASSIUM 3.7 mmol/L (3.5-5.1)
[2019-07-02] MEDS: POTASSIUM CHLORIDE 40 MEQ in SODIUM CHLORIDE 1,000 ML IVPB SCH ×2 (09:17→18:50)
[2019-07-02] MEDS: ENOXAPARIN NA (PORCINE) 40 MG/0.4 ML DISP.SYRIN SQ SCH (09:17)
--- NOTE | 2019-07-02 10:44 | PN ---
Progress Note, Physician History of Present Illness: patient stable no new issues - Current Medication List Current Medications: Active Medications Acetaminophen (Tylenol -) 650 mg PO Q6H PRN PRN Reason: FEVER Last Admin: 07/01/19 21:31 Dose: 650 mg Enoxaparin Sodium (Lovenox -) 40 mg SQ DAILY LUDWIG Last Admin: 07/02/19 09:17 Dose: 40 mg Piperacillin Sod/Tazobactam (Sod 3.375 gm/ Dextrose) 50 mls @ 100 mls/hr IVPB Q8H-IV LUDWIG; Protocol Last Admin: 07/02/19 09:17 Dose: 100 mls/hr Potassium Chloride 40 meq/ (Sodium Chloride) 1,020 mls @ 100 mls/hr IVPB Q10H LUDWIG Last Admin: 07/02/19 09:17 Dose: 100 mls/hr Oxycodone HCl (Roxicodone -) 5 mg PO Q6H PRN PRN Reason: PAIN LEVEL 6-10 Last Admin: 07/01/19 16:22 Dose: 5 mg - Objective Vital Signs: Vital Signs Temperature 99.3 F 07/02/19 05:52 Pulse Rate 71 07/02/19 05:52 Respiratory Rate 20 07/02/19 05:52 Blood Pressure 147/79 07/02/19 05:52 O2 Sat by Pulse Oximetry (%) 98 07/01/19 21:00 Constitutional: Yes: No Distress, Calm Cardiovascular: Yes: S1, S2 Respiratory: Yes: Regular, CTA Bilaterally Gastrointestinal: Yes: Normal Bowel Sounds, Soft Musculoskeletal: Yes: WNL Extremities: Yes: WNL Neurological: Yes: Alert, Oriented Psychiatric: Yes: Alert, Oriented Labs: CBC, BMP 07/02/19 06:35 07/02/19 06:35 INR, PTT INR 1.25 (0.83-1.09) H 06/29/19 22:45 Assessment/Plan 43 year old female with a past medical history of hypertension, gestational diabetes, and recent hysterectomy (s/p 2 weeks ago) is admitted for a urinary tract infection likely with early pyelonephritis complicated by recent instrumentation. Complicated Urinary Tract Infection HTN abd pain dysuria hydro plan continue abx hydration can change abx to ceftriaxone rest as per the team
--- NOTE | 2019-07-02 12:21 | PN ---
Progress Note (short form) - Note Progress Note: MINE BOSS F/U Pt subjectively feels better , pain is less scale 3-4/10 she still spiking Temp , last was at mid night , T max 101 Selected Entries 06/30/19 07/01/19 07/01/19 19:39 02:00 21:21 Temperature 102.0 F H 101.3 F H Pulse Rate 86 83 76 Blood Pressure 150/90 137/74 143/86 07/02/19 05:52 Temperature 99.3 F Pulse Rate Blood Pressure 147/79 o/e pt is comfortable p/a No tenderness in suprapubic area , NO CVA tenderness wound well healed , no erythema , no oozing , edges well approximated . urinec/s Microbiology 06/29/19 23:00 Urine - Urine Clean Catch Urine Culture - Final Escherichia Coli Imp , s/p Supracervical Abd Hysterectomy , Ac UTI on Zosyn, today changed to Ceftriaxone ct Iv antibiotics until afebrile for 24 hrs Problem List - Problems (1) Complicated UTI (urinary tract infection) Code(s): N39.0 - URINARY TRACT INFECTION, SITE NOT SPECIFIED (2) S/P abdominal supracervical subtotal hysterectomy Code(s): Z90.711 - ACQUIRED ABSENCE OF UTERUS WITH REMAINING CERVICAL STUMP (3) Chronic hypertension Code(s): I10 - ESSENTIAL (PRIMARY) HYPERTENSION
[2019-07-02 15:15] VITALS: BMI 41.5
[2019-07-02] MEDS ORDERED: DEXTROSE 5%-WATER 100 ML IVPB ONE (16:17)
[2019-07-02] MEDS: CEFTRIAXONE 2 GM in DEXTROSE 5%-WATER 100 ML IVPB SCH (16:22)
--- NOTE | 2019-07-02 19:00 | PN ---
Physical Exam: SUBJECTIVE: Patient seen and examined at bedside. Tmax overnight was 101. Microbiology from urine growing pansensitive Ecoli. Patient feeling well and responding to antibiotic therapy. OBJECTIVE: Vital Signs Period Temp Pulse Resp BP Sys/Morin Pulse Ox Last 24 Hr 98.9 F-101.3 F 71-81 18-20 133-147/79-87 98-99 GENERAL: The patient is awake, alert, and fully oriented, in no acute distress. HEAD: Normal with no signs of trauma. EYES: PERRL, extraocular movements intact, sclera anicteric, conjunctiva clear. No ptosis. ENT: Ears normal, nares patent, oropharynx clear without exudates, dry mucous membranes. NECK: Trachea midline, full range of motion, supple, mild JVD LUNGS: Breath sounds equal, clear to auscultation bilaterally, no wheezes, no crackles, no accessory muscle use. HEART: Regular rate and rhythm, S1, S2 with tricuspid murmur (patient confirms she has always had this). ABDOMEN: Soft, diffusely mildly tender, nondistended, normoactive bowel sounds, no guarding, no rebound. MUSCULOSKELETAL: Normal range of motion at all joints. No bony deformities or tenderness. No CVA tenderness, 2+ pulses, warm, well-perfused, trace edema on bilateral lower extremity. NEUROLOGICAL: Cranial nerves II through XII grossly intact. Normal speech, gait not observed. PSYCH: Normal mood, normal affect. SKIN: Warm, dry, normal turgor, no rashes or lesions noted Laboratory Results - last 24 hr 07/02/19 07/02/19 06:35 06:35 WBC 5.7 RBC 3.56 L Hgb 10.9 Hct 32.9 MCV 92.4 MCH 30.6 MCHC 33.1 RDW 13.1 Plt Count 220 MPV 8.9 Sodium 142 Potassium 3.7 Chloride 109 H Carbon Dioxide 27 Anion Gap 6 L BUN 4.4 L Creatinine 0.7 Est GFR (CKD-EPI)AfAm 121.27 Est GFR (CKD-EPI)NonAf 104.64 Random Glucose 129 H Calcium 8.6 Active Medications Generic Name Dose Route Start Last Admin Trade Name Freq PRN Reason Stop Dose Admin Acetaminophen 650 mg 06/30/19 20:07 07/01/19 21:31 Tylenol - PO 650 mg Q6H PRN Administration FEVER Enoxaparin Sodium 40 mg 06/30/19 10:00 07/02/19 09:17 Lovenox - SQ 40 mg DAILY LUDWIG Administration Potassium Chloride 40 meq/ 1,020 mls @ 100 mls/hr 07/01/19 11:08 07/02/19 18: 50 Sodium Chloride IVPB 100 mls/hr Q10H LUDWIG Administration Ceftriaxone Sodium 2 gm/ 100 mls @ 200 mls/hr 07/02/19 16:00 07/02/19 16:22 Dextrose IVPB 200 mls/hr DAILY LUDWIG Administration Protocol Oxycodone HCl 5 mg 06/30/19 18:04 07/01/19 16:22 Roxicodone - PO 5 mg Q6H PRN Administration PAIN LEVEL 6-10 ASSESSMENT/PLAN: - Abdominal CT showing dilated proximal small bowel to 3cm with air fluid levels , potentially 2/2 SBO or Ileus. Renal hydronephrosis and hyrdoureter with fat stranding in the surrounding area and L side ureteritis. -Abd U/S showing fatty infiltrate of liver ASSESSMENT/PLAN: Sam Connor is a 43 year old female with a past medical history of hypertension, gestational diabetes, and recent hysterectomy (2 weeks ago) admitted for a urinary tract infection likely with pyelonephritis complicated by recent instrumentation. 1.UTIUrine Clean Catch growing pansensitive Escherichia Coli - switched zosyn to ceftriaxone - continue IV antibiotics until afebrile for 24 hrs - ID consultation, Dr. Stanley following, appreciate recommendations - Strict Is+Os - continue NS @ 100cc/hr - continue tylenol for pain and fevers - DIESEL TECHNICIAN consulted (Dr. Bocanegra), recommendations appreciated 2. HTN - continue home amlodipine 10mg daily - has Lasix 40mg as home med, confirmed with pharmacy holding for now as patient is volume depleted and in sepsis. FEN - NS @ 100cc/hr - continue to monitor electrolytes and replete as necessary - sodium controlled diet Prophylaxis - Lovenox 40mg daily Code - full code Dispo: continue IV antibiotics until afebrile for 24 hrs Visit type - Emergency Visit Emergency Visit: No - New Patient This patient is new to me today: No - Critical Care Critical Care patient: No ATTENDING PHYSICIAN STATEMENT I saw and evaluated the patient. I reviewed the resident's note and discussed the case with the resident. I agree with the resident's findings and plan as documented. SUBJECTIVE: OBJECTIVE: ASSESSMENT AND PLAN:
--- NOTE | 2019-07-02 20:04 | PN ---
Teaching Attending Note Name of Resident: Felisha Schneider ATTENDING PHYSICIAN STATEMENT I saw and evaluated the patient. I reviewed the resident's note and discussed the case with the resident. I agree with the resident's findings and plan as documented. SUBJECTIVE: Patient is feeling better with no acute distress. OBJECTIVE: Vital Signs Temperature 99.1 F 07/02/19 14:48 Pulse Rate 75 07/02/19 14:48 Respiratory Rate 18 07/02/19 14:48 Blood Pressure 133/87 07/02/19 14:48 O2 Sat by Pulse Oximetry (%) 99 07/02/19 09:00 GENERAL: The patient is awake, alert, and fully oriented, in no acute distress. HEAD: Normal with no signs of trauma. EYES: PERRL, extraocular movements intact, sclera anicteric, conjunctiva clear. ENT: Ears normal, oropharynx clear without exudates, moist mucous membranes. NECK: Trachea midline, full range of motion, supple. LUNGS: Breath sounds equal, clear to auscultation bilaterally, no wheezes, no crackles, no accessory muscle use. HEART: Regular rate and rhythm, S1, S2 without murmur, rub or gallop. ABDOMEN: Soft, Nt,ND, normoactive bowel sounds, no guarding, no rebound, no hepatosplenomegaly, no masses.No CVA tenderness. EXTREMITIES: 2+ pulses, warm, well-perfused, no edema. NEUROLOGICAL: Cranial nerves II through XII grossly intact. Normal speech, gait is stable PSYCH: Normal mood, normal affect. SKIN: Warm, dry, normal turgor, no rashes or lesions noted CBCD WBC 5.7 K/mm3 (4.0-10.0) 07/02/19 06:35 RBC 3.56 M/mm3 (3.60-5.2) L 07/02/19 06:35 Hgb 10.9 GM/dL (10.7-15.3) 07/02/19 06:35 Hct 32.9 % (32.4-45.2) 07/02/19 06:35 MCV 92.4 fl (80-96) 07/02/19 06:35 MCHC 33.1 g/dl (32.0-36.0) 07/02/19 06:35 RDW 13.1 % (11.6-15.6) 07/02/19 06:35 Plt Count 220 K/MM3 (134-434) 07/02/19 06:35 MPV 8.9 fl (7.5-11.1) 07/02/19 06:35 CMP Sodium 142 mmol/L (136-145) 07/02/19 06:35 Potassium 3.7 mmol/L (3.5-5.1) 07/02/19 06:35 Chloride 109 mmol/L (98-107) H 07/02/19 06:35 Carbon Dioxide 27 mmol/L (21-32) 07/02/19 06:35 Anion Gap 6 MMOL/L (8-16) L 07/02/19 06:35 BUN 4.4 mg/dL (7-18) L 07/02/19 06:35 Creatinine 0.7 mg/dL (0.55-1.3) 07/02/19 06:35 Random Glucose 129 mg/dL (74-106) H 07/02/19 06:35 Calcium 8.6 mg/dL (8.5-10.1) 07/02/19 06:35 Total Bilirubin 0.8 mg/dL (0.2-1) 07/01/19 07:08 AST 24 U/L (15-37) 07/01/19 07:08 ALT 50 U/L (13-61) 07/01/19 07:08 Alkaline Phosphatase 103 U/L (45-117) 07/01/19 07:08 Total Protein 6.3 g/dl (6.4-8.2) L 07/01/19 07:08 Albumin 2.4 g/dl (3.4-5.0) L 07/01/19 07:08 CARDIAC ENZYMES Troponin I < 0.02 ng/ml (0.00-0.05) 06/29/19 22:45 Current Medications Generic Name Dose Route Start Last Admin Trade Name Freq PRN Reason Stop Dose Admin Acetaminophen 650 mg 06/30/19 20:07 07/01/19 21:31 Tylenol - PO 650 mg Q6H PRN Administration FEVER Enoxaparin Sodium 40 mg 06/30/19 10:00 07/02/19 09:17 Lovenox - SQ 40 mg DAILY LUDWIG Administration Potassium Chloride 40 meq/ 1,020 mls @ 100 mls/hr 07/01/19 11:08 07/02/19 18: 50 Sodium Chloride IVPB 100 mls/hr Q10H LUDWIG Administration Ceftriaxone Sodium 2 gm/ 100 mls @ 200 mls/hr 07/02/19 16:00 07/02/19 16:22 Dextrose IVPB 200 mls/hr DAILY LUDWIG Administration Protocol Oxycodone HCl 5 mg 06/30/19 18:04 07/01/19 16:22 Roxicodone - PO 5 mg Q6H PRN Administration PAIN LEVEL 6-10 Home Medications Medication Instructions Recorded Amlodipine Besylate [Norvasc -] 10 mg PO DAILY 06/30/19 Ferrous Sulfate 325 mg PO DAILY 06/30/19 Furosemide 40 mg PO DAILY 06/30/19 Microbiology 06/30/19 18:00 Vaginal Gram Stain - Final 06/30/19 18:00 Vaginal Genital Culture - Preliminary NORMAL GENITAL LINDA ISOLATED 06/29/19 23:00 Urine - Urine Clean Catch Urine Culture - Final Escherichia Coli sensitive to Ceftriaxone 06/30/19 00:05 Blood - Peripheral Venous Blood Culture - Preliminary NO GROWTH OBTAINED AFTER 48 HOURS, INCUBATION TO CONTINUE FOR 3 DAYS. 06/30/19 00:05 Blood - Peripheral Venous Blood Culture - Preliminary NO GROWTH OBTAINED AFTER 48 HOURS, INCUBATION TO CONTINUE FOR [address] of abdomen and pelvis: L hydro with hypodense areas in kidney and L hydroureter, but no stones. L pelvic wall collection ASSESSMENT AND PLAN: Patient is a 43 y/o lady with PMhx of recent hysterectomy due to having fibroids , HTN, gestational DM , who presented with abdominal pain and fever. she was found to have sepsis from UTI/Pylonephritis. # Acute sepsis due to having UTI and L pyelonephritis. s/p zosyn now on Rocephin 2gm IV continue. Dr. Stanley on the case , as per urologist no further intervention surgically. # H/o HTN: hold norvasc and monitor BP. can resume when needed # Acute Transaminitis : improved #Hypokalemia: replete DVt Px: Lovenox
[2019-07-02] MEDS: ACETAMINOPHEN 325 MG TABLET (FP) PO PRN (23:23)
[2019-07-03] MEDS: oxyCODONE HCL 5 MG TABLET PO PRN (02:04)
[2019-07-03] MEDS: POTASSIUM CHLORIDE 40 MEQ in SODIUM CHLORIDE 1,000 ML IVPB SCH (02:11)
[2019-07-03 08:54] LABS: BASO % 0.5 % (0-2.0); EOS % 2.9 % (0-4.5); HEMATOCRIT 35.9 % (32.4-45.2); LYMPH % 33.2 % (8-40); MCH 31.2 pg (25.7-33.7); MCHC 33.5 g/dl (32.0-36.0); MEAN CELL VOLUME 93.1 fl (80-96); MEAN PLT VOLUME 8.5 fl (7.5-11.1); MONO % 7.8 % (3.8-10.2); NEUT % 55.6 % (42.8-82.8); PLATELET COUNT 274 K/MM3 (134-434); RBC 3.86 M/mm3 (3.60-5.2); RDW 13.3 % (11.6-15.6)
--- NOTE | 2019-07-03 09:01 | PN ---
Physical Exam: SUBJECTIVE: Patient seen and examined at the bedside. She asked if we changed her medications because she noted increased urinary frequency overnight, burning on urination, and suprapubic pain. The patient was febrile to 101.3 yesterday evening. OBJECTIVE: Vital Signs Period Temp Pulse Resp BP Sys/Morin Pulse Ox Last 24 Hr 98.0 F-99.3 F 66-81 18-20 117-152/54-87 99 GENERAL: The patient is awake, alert, and fully oriented, in no acute distress. HEAD: Normal with no signs of trauma. EYES: PERRL, extraocular movements intact, sclera anicteric, conjunctiva clear. No ptosis. ENT: Ears normal, nares patent, oropharynx clear without exudates, dry mucous membranes. NECK: Trachea midline, full range of motion, supple, mild JVD LUNGS: Breath sounds equal, clear to auscultation bilaterally, no wheezes, no crackles, no accessory muscle use. HEART: Regular rate and rhythm, S1, S2 with tricuspid murmur (patient confirms she has always had this). ABDOMEN: Soft, mildly tender to palpation in the suprapubic region, nondistended , normoactive bowel sounds, no guarding, no rebound. MUSCULOSKELETAL: Normal range of motion at all joints. No bony deformities or tenderness. No CVA tenderness, 2+ pulses, warm, well-perfused. NEUROLOGICAL: Cranial nerves II through XII grossly intact. Normal speech, gait not observed. PSYCH: Normal mood, normal affect. SKIN: Warm, dry, normal turgor, no rashes or lesions noted Laboratory Results - last 24 hr 07/03/19 08:10 WBC 5.0 RBC 3.86 Hgb 12.0 Hct 35.9 MCV 93.1 MCH 31.2 MCHC 33.5 RDW 13.3 Plt Count 274 D MPV 8.5 Absolute Neuts (auto) 2.8 Neutrophils % 55.6 D Lymphocytes % 33.2 D Monocytes % 7.8 Eosinophils % 2.9 D Basophils % 0.5 Nucleated RBC % 0 Active Medications Generic Name Dose Route Start Last Admin Trade Name Freq PRN Reason Stop Dose Admin Acetaminophen 650 mg 06/30/19 20:07 07/02/19 23:23 Tylenol - PO 650 mg Q6H PRN Administration FEVER Enoxaparin Sodium 40 mg 06/30/19 10:00 07/02/19 09:17 Lovenox - SQ 40 mg DAILY LUDWIG Administration Potassium Chloride 40 meq/ 1,020 mls @ 100 mls/hr 07/01/19 11:08 07/03/19 02: 11 Sodium Chloride IVPB 100 mls/hr Q10H LUDWIG Administration Ceftriaxone Sodium 2 gm/ 100 mls @ 200 mls/hr 07/02/19 16:00 07/02/19 16:22 Dextrose IVPB 200 mls/hr DAILY LUDWIG Administration Protocol Oxycodone HCl 5 mg 06/30/19 18:04 07/03/19 02:04 Roxicodone - PO 5 mg Q6H PRN Administration PAIN LEVEL 6-10 - Abdominal CT showing dilated proximal small bowel to 3cm with air fluid levels , potentially 2/2 SBO or Ileus. Renal hydronephrosis and hyrdoureter with fat stranding in the surrounding area and L side ureteritis. -Abd U/S showing fatty infiltrate of liver ASSESSMENT/PLAN: Sam Connor is a 43 year old female with a past medical history of hypertension, gestational diabetes, and recent hysterectomy (2 weeks ago) admitted for a urinary tract infection likely with pyelonephritis complicated by recent instrumentation. 1. Complicated UTI-Urine Clean Catch growing bernardo-sensitive Escherichia Coli - switched zosyn to ceftriaxone- patient reporting she is feeling symptomatic again today - will notify ID (Dr. Stanley to discuss changing medication regimen) - D/C ceftriaxone - Resume Zosyn until recommendations from Dr. Stanley - Send repeat urine culture - Probiotics - continue IV antibiotics until afebrile for 24 hrs - Dr. Stanley following, appreciate recommendations - continue tylenol for pain and fevers 2. HTN - holding home amlodipine 10mg daily, continuing monitoring BPs, will resume when necessary - holding home lasix FEN - PO fluids - hypokalemia resolved, continue to monitor lytes and replete PRN - sodium controlled diet Prophylaxis - Lovenox 40mg daily Code - full code Dispo: continue IV antibiotics until afebrile for 24 hrs Visit type - Emergency Visit Emergency Visit: Yes ED Registration Date: 06/30/19 Care time: The patient presented to the Emergency Department on the above date and was hospitalized for further evaluation of their emergent condition. - New Patient This patient is new to me today: No - Critical Care Critical Care patient: No - Discharge Referral Referred to [facility] No ATTENDING PHYSICIAN STATEMENT I saw and evaluated the patient. I reviewed the resident's note and discussed the case with the resident. I agree with the resident's findings and plan as documented. SUBJECTIVE: OBJECTIVE: ASSESSMENT AND PLAN:
--- NOTE | 2019-07-03 09:19 | PN ---
Progress Note, Physician History of Present Illness: stable improving - Current Medication List Current Medications: Active Medications Acetaminophen (Tylenol -) 650 mg PO Q6H PRN PRN Reason: FEVER Last Admin: 07/02/19 23:23 Dose: 650 mg Enoxaparin Sodium (Lovenox -) 40 mg SQ DAILY [facility] Last Admin: 07/02/19 09:17 Dose: 40 mg Potassium Chloride 40 meq/ (Sodium Chloride) 1,020 mls @ 100 mls/hr IVPB Q10H [facility] Last Admin: 07/03/19 02:11 Dose: 100 mls/hr Ceftriaxone Sodium 2 gm/ (Dextrose) 100 mls @ 200 mls/hr IVPB DAILY [facility]; Protocol Last Admin: 07/02/19 16:22 Dose: 200 mls/hr Oxycodone HCl (Roxicodone -) 5 mg PO Q6H PRN PRN Reason: PAIN LEVEL 6-10 Last Admin: 07/03/19 02:04 Dose: 5 mg - Objective Vital Signs: Vital Signs Temperature 99.0 F 07/03/19 06:35 Pulse Rate 72 07/03/19 06:35 Respiratory Rate 20 07/03/19 06:35 Blood Pressure 117/54 L 07/03/19 06:35 O2 Sat by Pulse Oximetry (%) 99 07/02/19 21:00 Constitutional: Yes: Calm, Obese Cardiovascular: Yes: Regular Rate and Rhythm Respiratory: Yes: Regular, CTA Bilaterally Gastrointestinal: Yes: Normal Bowel Sounds, Soft Musculoskeletal: Yes: WNL Extremities: Yes: Other Neurological: Yes: Alert, Oriented Psychiatric: Yes: Alert, Oriented Labs: CBC, BMP 07/03/19 08:10 INR, PTT INR 1.25 (0.83-1.09) H 06/29/19 22:45 Assessment/Plan 43 year old female with a past medical history of hypertension, gestational diabetes, and recent hysterectomy (s/p 2 weeks ago) is admitted for a urinary tract infection likely with early pyelonephritis complicated by recent instrumentation. Complicated Urinary Tract Infection HTN abd pain dysuria hydro plan continue abx rest as per the team
[2019-07-03 09:22] LABS: ALBUMIN 2.8 g/dl (3.4-5.0); BILIRUBIN,TOTAL 0.3 mg/dL (0.2-1); BLOOD UREA NITROGEN 4.8 mg/dL (7-18); CALCIUM 9.2 mg/dL (8.5-10.1); CREATININE 0.7 mg/dL (0.55-1.3); POTASSIUM 4.3 mmol/L (3.5-5.1); TOT PROT 7.6 g/dl (6.4-8.2)
[2019-07-03] MEDS ORDERED: DEXTROSE 5%-WATER 100 ML IVPB ONE (09:41)
[2019-07-03] MEDS: CEFTRIAXONE 2 GM in DEXTROSE 5%-WATER 100 ML IVPB SCH (09:45)
[2019-07-03] MEDS: ENOXAPARIN NA (PORCINE) 40 MG/0.4 ML DISP.SYRIN SQ SCH (09:45)
--- NOTE | 2019-07-03 10:56 | PN ---
Teaching Attending Note Name of Resident: Felisha Schneider ATTENDING PHYSICIAN STATEMENT I saw and evaluated the patient. I reviewed the resident's note and discussed the case with the resident. I agree with the resident's findings and plan as documented. SUBJECTIVE: Patient is c/o having urinary symptoms came back ; urgency and frequency . OBJECTIVE: Vital Signs Temperature 99.0 F 07/03/19 06:35 Pulse Rate 72 07/03/19 06:35 Respiratory Rate 20 07/03/19 06:35 Blood Pressure 117/54 L 07/03/19 06:35 O2 Sat by Pulse Oximetry (%) 99 07/02/19 21:00 GENERAL: The patient is awake, alert, and fully oriented, in no acute distress. HEAD: Normal with no signs of trauma. EYES: PERRL, extraocular movements intact, sclera anicteric, conjunctiva clear. ENT: Ears normal, oropharynx clear without exudates, moist mucous membranes. NECK: Trachea midline, full range of motion, supple. LUNGS: Breath sounds equal, clear to auscultation bilaterally, no wheezes, no crackles, no accessory muscle use. HEART: Regular rate and rhythm, S1, S2 without murmur, rub or gallop. ABDOMEN: Soft, Nt,ND, normoactive bowel sounds, no guarding, no rebound, no hepatosplenomegaly, no masses. EXTREMITIES: 2+ pulses, warm, well-perfused, no edema. NEUROLOGICAL: Cranial nerves II through XII grossly intact. Normal speech, gait is stable. PSYCH: Normal mood, normal affect. SKIN: Warm, dry, normal turgor, no rashes or lesions noted CBCD WBC 5.0 K/mm3 (4.0-10.0) 07/03/19 08:10 RBC 3.86 M/mm3 (3.60-5.2) 07/03/19 08:10 Hgb 12.0 GM/dL (10.7-15.3) 07/03/19 08:10 Hct 35.9 % (32.4-45.2) 07/03/19 08:10 MCV 93.1 fl (80-96) 07/03/19 08:10 MCHC 33.5 g/dl (32.0-36.0) 07/03/19 08:10 RDW 13.3 % (11.6-15.6) 07/03/19 08:10 Plt Count 274 K/MM3 (134-434) D 07/03/19 08:10 MPV 8.5 fl (7.5-11.1) 07/03/19 08:10 CMP Sodium 142 mmol/L (136-145) 07/03/19 08:10 Potassium 4.3 mmol/L (3.5-5.1) 07/03/19 08:10 Chloride 110 mmol/L (98-107) H 07/03/19 08:10 Carbon Dioxide 30 mmol/L (21-32) 07/03/19 08:10 Anion Gap 2 MMOL/L (8-16) L 07/03/19 08:10 BUN 4.8 mg/dL (7-18) L 07/03/19 08:10 Creatinine 0.7 mg/dL (0.55-1.3) 07/03/19 08:10 Random Glucose 131 mg/dL (74-106) H 07/03/19 08:10 Calcium 9.2 mg/dL (8.5-10.1) 07/03/19 08:10 Total Bilirubin 0.3 mg/dL (0.2-1) 07/03/19 08:10 AST 21 U/L (15-37) 07/03/19 08:10 ALT 48 U/L (13-61) 07/03/19 08:10 Alkaline Phosphatase 114 U/L (45-117) 07/03/19 08:10 Total Protein 7.6 g/dl (6.4-8.2) 07/03/19 08:10 Albumin 2.8 g/dl (3.4-5.0) L 07/03/19 08:10 CARDIAC ENZYMES Troponin I < 0.02 ng/ml (0.00-0.05) 06/29/19 22:45 Current Medications Generic Name Dose Route Start Last Admin Trade Name Freq PRN Reason Stop Dose Admin Acetaminophen 650 mg 06/30/19 20:07 07/02/19 23:23 Tylenol - PO 650 mg Q6H PRN Administration FEVER Enoxaparin Sodium 40 mg 06/30/19 10:00 07/03/19 09:45 Lovenox - SQ 40 mg DAILY [facility] Administration Piperacillin Sod/Tazobactam 50 mls @ 100 mls/hr 07/03/19 11:00 Sod 3.375 gm/ Dextrose IVPB Q8H-IV [facility] Protocol Oxycodone HCl 5 mg 06/30/19 18:04 07/03/19 02:04 Roxicodone - PO 5 mg Q6H PRN Administration PAIN LEVEL 6-10 Home Medications Medication Instructions Recorded Amlodipine Besylate [Norvasc -] 10 mg PO DAILY 06/30/19 Ferrous Sulfate 325 mg PO DAILY 06/30/19 Furosemide 40 mg PO DAILY 06/30/19 Microbiology 06/30/19 00:05 Blood - Peripheral Venous Blood Culture - Preliminary NO GROWTH OBTAINED AFTER 72 HOURS, INCUBATION TO CONTINUE FOR 2 DAYS. 06/30/19 00:05 Blood - Peripheral Venous Blood Culture - Preliminary NO GROWTH OBTAINED AFTER 72 HOURS, INCUBATION TO CONTINUE FOR 2 DAYS. 06/30/19 18:00 Vaginal Gram Stain - Final 06/30/19 18:00 Vaginal Genital Culture - Preliminary NORMAL GENITAL LINDA ISOLATED 06/29/19 23:00 Urine - Urine Clean Catch Urine Culture - Final Escherichia Coli CT of abdomen and pelvis: L hydro with hypodense areas in kidney and L hydroureter, but no stones. L pelvic wall collection ASSESSMENT AND PLAN: Patient is a 43 y/o lady with PMhx of recent hysterectomy due to having fibroids , HTN, gestational DM , who presented with abdominal pain and fever. she was found to have sepsis from UTI/Pylonephritis. # Acute sepsis due to having UTI and L pyelonephritis. will restart her back to zosyn , will discontinue Rocephin 2gm IV and re-culture her since she got her symptoms back . Dr. tSanley on the case , as per urologist no further intervention surgically. # H/o HTN: hold norvasc and monitor BP. can resume when needed # Acute Transaminitis : within normal limit now. #Hypokalemia: repleted, normal now DVt Px: Lovenox
[2019-07-03] MEDS ORDERED: PIPERACILLIN/TAZOB 3.375 GM 3.375 GM in DEXTROSE 5%-WATER - 50 ML IVPB SCH (11:15)
[2019-07-03] MEDS ORDERED: PIPERACILLIN/TAZOBACTAM 3.375 GM VIAL IVPB ONE ×2 (12:20→17:25)
[2019-07-03] MEDS ORDERED: DEXTROSE 5%-WATER - 50 ML IVPB ONE ×2 (12:21→17:25)
[2019-07-03 15:30] LABS: EPI CELLS 0.6 /HPF (0-5/HPF); HYALINE CASTS 3 /lpf (0-8); URINE APPEARANCE CLEAR; URINE BACTERIA 0 /hpf (NEGATIVE); URINE BILIRUBIN NEGATIVE (NEGATIVE); URINE COLOR YELLOW; URINE GLUCOSE (UA) NEGATIVE (NEGATIVE); URINE KETONE NEGATIVE (NEGATIVE); URINE LEUK ESTERASE NEGATIVE (NEGATIVE); URINE NITRITE NEGATIVE (NEGATIVE); URINE PROTEIN 1+ (NEGATIVE); URINE RBC 0 /hpf (0-4); URINE UROBILINOGEN 0.2 mg/dL (0.2-1.0); URINE WBC 1 /hpf (0-5)
[2019-07-03] MEDS: PIPERACILLIN/TAZOB 3.375 GM 3.375 GM in DEXTROSE 5%-WATER - 50 ML IVPB SCH (18:03)
[2019-07-04] MEDS ORDERED: DEXTROSE 5%-WATER - 50 ML IVPB ONE ×3 (00:47→17:10)
[2019-07-04] MEDS ORDERED: PIPERACILLIN/TAZOBACTAM 3.375 GM VIAL IVPB ONE ×3 (00:47→17:10)
[2019-07-04] MEDS: PIPERACILLIN/TAZOB 3.375 GM 3.375 GM in DEXTROSE 5%-WATER - 50 ML IVPB SCH ×3 (01:05→17:26)
[2019-07-04] MEDS: ENOXAPARIN NA (PORCINE) 40 MG/0.4 ML DISP.SYRIN SQ SCH (09:19)
[2019-07-04 09:21] LABS: HEMATOCRIT 33.3 % (32.4-45.2); MCH 30.7 pg (25.7-33.7); MCHC 33.1 g/dl (32.0-36.0); MEAN CELL VOLUME 92.7 fl (80-96); MEAN PLT VOLUME 8.6 fl (7.5-11.1); PLATELET COUNT 279 K/MM3 (134-434); RBC 3.59 M/mm3 (3.60-5.2); RDW 12.9 % (11.6-15.6); WHITE BLOOD COUNT 4.7 K/mm3 (4.0-10.0)
[2019-07-04 09:58] LABS: ALBUMIN 2.6 g/dl (3.4-5.0); BILIRUBIN,TOTAL 0.3 mg/dL (0.2-1); CALCIUM 9.1 mg/dL (8.5-10.1); CREATININE 0.8 mg/dL (0.55-1.3); POTASSIUM 4.2 mmol/L (3.5-5.1); TOT PROT 6.9 g/dl (6.4-8.2)
--- NOTE | 2019-07-04 12:29 | PN ---
Progress Note, Physician History of Present Illness: Pt seen and examined. Events noted. Antibiotics switched back to Zosyn due to pt complaints of abd pain, diarrhea, and return of dysuria. Today she states she feels much better. Denies abd pain/diarrhea/dysuria, afebrile >24hrs. - Current Medication List Current Medications: Active Medications Acetaminophen (Tylenol -) 650 mg PO Q6H PRN PRN Reason: FEVER Last Admin: 07/02/19 23:23 Dose: 650 mg Enoxaparin Sodium (Lovenox -) 40 mg SQ DAILY [facility] Last Admin: 07/04/19 09:19 Dose: 40 mg Piperacillin Sod/Tazobactam (Sod 3.375 gm/ Dextrose) 50 mls @ 100 mls/hr IVPB Q8H-IV [facility]; Protocol Last Admin: 07/04/19 09:19 Dose: 100 mls/hr - Objective Vital Signs: Vital Signs Temperature 98.4 F 07/04/19 12:00 Pulse Rate 75 07/04/19 12:00 Respiratory Rate 18 07/04/19 12:00 Blood Pressure 152/94 07/04/19 12:00 O2 Sat by Pulse Oximetry (%) 95 07/04/19 09:00 Constitutional: Yes: No Distress, Calm Cardiovascular: Yes: Regular Rate and Rhythm Respiratory: Yes: Regular Gastrointestinal: Yes: Normal Bowel Sounds, Soft Genitourinary: Yes: WNL Extremities: Yes: WNL Integumentary: Yes: WNL Neurological: Yes: Alert, Oriented Labs: CBC, BMP 07/04/19 07:55 07/04/19 07:55 INR, PTT INR 1.25 (0.83-1.09) H 06/29/19 22:45 Microbiology 06/30/19 00:05 Blood - Peripheral Venous Blood Culture - Preliminary NO GROWTH OBTAINED AFTER 96 HOURS, INCUBATION TO CONTINUE FOR 1 DAYS. 06/30/19 00:05 Blood - Peripheral Venous Blood Culture - Preliminary NO GROWTH OBTAINED AFTER 96 HOURS, INCUBATION TO CONTINUE FOR 1 DAYS. 06/30/19 18:00 Vaginal Gram Stain - Final 06/30/19 18:00 Vaginal Genital Culture - Final NORMAL GENITAL LINDA ISOLATED 06/29/19 23:00 Urine - Urine Clean Catch Urine Culture - Final Escherichia Coli Problem List - Problems (1) Chronic hypertension Code(s): I10 - ESSENTIAL (PRIMARY) HYPERTENSION (2) Complicated UTI (urinary tract infection) Code(s): N39.0 - URINARY TRACT INFECTION, SITE NOT SPECIFIED (3) S/P abdominal supracervical subtotal hysterectomy Code(s): Z90.711 - ACQUIRED ABSENCE OF UTERUS WITH REMAINING CERVICAL STUMP Assessment/Plan Complicated UTI Hydronephrosis/hydroureter s/p hysterectomy HTN -- pt switched back to Zosyn -- follow up repeat urine culture -- continue monitor temps, vitals currently stable -- no further abd pain/diarrhea/dysuria
[2019-07-04] MEDS: ACETAMINOPHEN 325 MG TABLET (FP) PO PRN (17:31)
--- NOTE | 2019-07-04 18:57 | PN ---
Progress Note (short form) - Note Progress Note: Patient is feeling better with no acute distress, no nausea or vomitng, no fever or chills, no urgency or frequency. Vital Signs Temperature 98.3 F 07/04/19 13:26 Pulse Rate 73 07/04/19 13:26 Respiratory Rate 18 07/04/19 13:26 Blood Pressure 157/69 07/04/19 13:26 O2 Sat by Pulse Oximetry (%) 95 07/04/19 09:00 GENERAL: The patient is awake, alert, and fully oriented, in no acute distress. HEAD: Normal with no signs of trauma. EYES: PERRL, extraocular movements intact, sclera anicteric, conjunctiva clear. ENT: Ears normal, oropharynx clear without exudates, moist mucous membranes. NECK: Trachea midline, full range of motion, supple. LUNGS: Breath sounds equal, clear to auscultation bilaterally, no wheezes, no crackles, no accessory muscle use. HEART: Regular rate and rhythm, S1, S2 without murmur, rub or gallop. ABDOMEN: Soft, Nt,ND, normoactive bowel sounds, no guarding, no rebound, no hepatosplenomegaly, no masses. EXTREMITIES: 2+ pulses, warm, well-perfused, no edema. NEUROLOGICAL: Cranial nerves II through XII grossly intact. Normal speech, gait is stable. PSYCH: Normal mood, normal affect. SKIN: Warm, dry, normal turgor, no rashes or lesions noted CBCD WBC 4.7 K/mm3 (4.0-10.0) 07/04/19 07:55 RBC 3.59 M/mm3 (3.60-5.2) L 07/04/19 07:55 Hgb 11.0 GM/dL (10.7-15.3) 07/04/19 07:55 Hct 33.3 % (32.4-45.2) 07/04/19 07:55 MCV 92.7 fl (80-96) 07/04/19 07:55 MCHC 33.1 g/dl (32.0-36.0) 07/04/19 07:55 RDW 12.9 % (11.6-15.6) 07/04/19 07:55 Plt Count 279 K/MM3 (134-434) 07/04/19 07:55 MPV 8.6 fl (7.5-11.1) 07/04/19 07:55 CMP Sodium 142 mmol/L (136-145) 07/04/19 07:55 Potassium 4.2 mmol/L (3.5-5.1) 07/04/19 07:55 Chloride 109 mmol/L (98-107) H 07/04/19 07:55 Carbon Dioxide 26 mmol/L (21-32) 07/04/19 07:55 Anion Gap 8 MMOL/L (8-16) 07/04/19 07:55 BUN 8.0 mg/dL (7-18) 07/04/19 07:55 Creatinine 0.8 mg/dL (0.55-1.3) 07/04/19 07:55 Random Glucose 124 mg/dL (74-106) H 07/04/19 07:55 Calcium 9.1 mg/dL (8.5-10.1) 07/04/19 07:55 Total Bilirubin 0.3 mg/dL (0.2-1) 07/04/19 07:55 AST 19 U/L (15-37) 07/04/19 07:55 ALT 37 U/L (13-61) 07/04/19 07:55 Alkaline Phosphatase 102 U/L (45-117) 07/04/19 07:55 Total Protein 6.9 g/dl (6.4-8.2) 07/04/19 07:55 Albumin 2.6 g/dl (3.4-5.0) L 07/04/19 07:55 CARDIAC ENZYMES Troponin I < 0.02 ng/ml (0.00-0.05) 06/29/19 22:45 Current Medications Generic Name Dose Route Start Last Admin Trade Name Freq PRN Reason Stop Dose Admin Acetaminophen 650 mg 06/30/19 20:07 07/04/19 17:31 Tylenol - PO 650 mg Q6H PRN Administration FEVER Enoxaparin Sodium 40 mg 06/30/19 10:00 07/04/19 09:19 Lovenox - SQ 40 mg DAILY [facility] Administration Piperacillin Sod/Tazobactam 50 mls @ 100 mls/hr 07/03/19 18:00 07/04/19 17:26 Sod 3.375 gm/ Dextrose IVPB 100 mls/hr Q8H-IV [facility] Administration Protocol Microbiology 06/30/19 00:05 Blood - Peripheral Venous Blood Culture - Preliminary NO GROWTH OBTAINED AFTER 96 HOURS, INCUBATION TO CONTINUE FOR 1 DAYS. 06/30/19 00:05 Blood - Peripheral Venous Blood Culture - Preliminary NO GROWTH OBTAINED AFTER 96 HOURS, INCUBATION TO CONTINUE FOR 1 DAYS. 06/30/19 18:00 Vaginal Gram Stain - Final 06/30/19 18:00 Vaginal Genital Culture - Final NORMAL GENITAL LINDA ISOLATED 06/29/19 23:00 Urine - Urine Clean Catch Urine Culture - Final Escherichia Coli CT of abdomen and pelvis: L hydro with hypodense areas in kidney and L hydroureter, but no stones. L pelvic wall collection ASSESSMENT AND PLAN: Patient is a 43 y/o lady with PMhx of recent hysterectomy due to having fibroids , HTN, gestational DM , who presented with abdominal pain and fever. she was found to have sepsis from UTI/Pylonephritis. # Acute sepsis due to having UTI and L pyelonephritis. continue zosyn for now , wait for the re-culture result, since she got her symptoms back Dr. Stanley on the case , as per urologist no further intervention surgically. # H/o HTN: hold norvasc and monitor BP. can resume when needed # Acute Transaminitis : within normal limit now. #Hypokalemia: repleted, normal now DVt Px: Lovenox dc patient home. Visit type - Emergency Visit Emergency Visit: Yes ED Registration Date: 06/30/19 Care time: The patient presented to the Emergency Department on the above date and was hospitalized for further evaluation of their emergent condition. - New Patient This patient is new to me today: No - Critical Care Critical Care patient: No - Discharge Referral Referred to [facility] Med P.C.: No
[2019-07-05] MEDS ORDERED: DEXTROSE 5%-WATER - 50 ML IVPB ONE ×2 (00:41→09:14)
[2019-07-05] MEDS ORDERED: PIPERACILLIN/TAZOBACTAM 3.375 GM VIAL IVPB ONE ×2 (00:41→09:14)
[2019-07-05] MEDS: PIPERACILLIN/TAZOB 3.375 GM 3.375 GM in DEXTROSE 5%-WATER - 50 ML IVPB SCH ×2 (01:13→09:42)
[2019-07-05] MEDS: ENOXAPARIN NA (PORCINE) 40 MG/0.4 ML DISP.SYRIN SQ SCH (09:42)
[2019-07-05] MEDS ORDERED: amLODIPine BESYLATE 10 MG TABLET (FP) PO SCH (10:00)
[2019-07-05 11:15] VITALS: BP 144/92; PULSE 60; TEMP 98
--- NOTE | 2019-07-05 11:18 | PN ---
Progress Note, Physician History of Present Illness: Pt is alert, states she feels well. Denies dysuria, suprapubic or flank pain, abd pain/diarrhea. Has no complaints. - Current Medication List Current Medications: Active Medications Acetaminophen (Tylenol -) 650 mg PO Q6H PRN PRN Reason: FEVER Last Admin: 07/04/19 17:31 Dose: 650 mg Amlodipine Besylate (Norvasc -) 10 mg PO DAILY [facility] Last Admin: 07/05/19 09:42 Dose: 10 mg Enoxaparin Sodium (Lovenox -) 40 mg SQ DAILY [facility] Last Admin: 07/05/19 09:42 Dose: 40 mg Piperacillin Sod/Tazobactam (Sod 3.375 gm/ Dextrose) 50 mls @ 100 mls/hr IVPB Q8H-IV [facility]; Protocol Last Admin: 07/05/19 09:42 Dose: 100 mls/hr - Objective Vital Signs: Vital Signs Temperature 97.7 F 07/05/19 05:02 Pulse Rate 64 07/05/19 05:02 Respiratory Rate 20 07/05/19 05:02 Blood Pressure 156/82 07/05/19 05:02 O2 Sat by Pulse Oximetry (%) 98 07/05/19 09:00 Constitutional: Yes: No Distress, Calm Cardiovascular: Yes: Regular Rate and Rhythm Respiratory: Yes: CTA Bilaterally Gastrointestinal: Yes: Normal Bowel Sounds, Soft Genitourinary: Yes: WNL Extremities: Yes: WNL Integumentary: Yes: WNL Neurological: Yes: Alert, Oriented Labs: CBC, BMP 07/04/19 07:55 07/04/19 07:55 INR, PTT INR 1.25 (0.83-1.09) H 06/29/19 22:45 Microbiology 06/30/19 00:05 Blood - Peripheral Venous Blood Culture - Final NO GROWTH AFTER 5 DAYS INCUBATION 06/30/19 00:05 Blood - Peripheral Venous Blood Culture - Final NO GROWTH AFTER 5 DAYS INCUBATION 06/30/19 18:00 Vaginal Gram Stain - Final 06/30/19 18:00 Vaginal Genital Culture - Final NORMAL GENITAL LINDA ISOLATED 06/29/19 23:00 Urine - Urine Clean Catch Urine Culture - Final Escherichia Coli Problem List - Problems (1) Chronic hypertension Code(s): I10 - ESSENTIAL (PRIMARY) HYPERTENSION (2) Complicated UTI (urinary tract infection) Code(s): N39.0 - URINARY TRACT INFECTION, SITE NOT SPECIFIED (3) S/P abdominal supracervical subtotal hysterectomy Code(s): Z90.711 - ACQUIRED ABSENCE OF UTERUS WITH REMAINING CERVICAL STUMP Assessment/Plan Complicated UTI Hydronephrosis/hydroureter s/p hysterectomy HTN -- Pt is afebrile, symptoms resolved -- For d/c home, may switch to Levaquin 500 mg po x 5 days -- Pt instructed to seek medical attention if symptoms return/develops rash/ fever/abd pain/or diarrhea f/u with PMD
--- NOTE | 2019-07-05 12:00 | DS ---
Physical Exam: SUBJECTIVE: Patient seen and examined OBJECTIVE: Vital Signs Period Temp Pulse Resp BP Sys/Morin Pulse Ox Last 24 Hr 97.7 F-99.0 F 60-73 18-20 144-157/69-92 98-98 PHYSICAL EXAM GENERAL: The patient is awake, alert, and fully oriented, in no acute distress. HEAD: Normal with no signs of trauma. EYES: PERRL, extraocular movements intact, sclera anicteric, conjunctiva clear. ENT: Ears normal, nares patent, oropharynx clear without exudates, moist mucous membranes. NECK: Trachea midline, full range of motion, supple. LUNGS: Breath sounds equal, clear to auscultation bilaterally, no wheezes, no crackles, no accessory muscle use. HEART: Regular rate and rhythm, S1, S2 without murmur, rub or gallop. ABDOMEN: Soft, nontender, nondistended, normoactive bowel sounds, no guarding, no rebound, no hepatosplenomegaly, no masses. EXTREMITIES: 2+ pulses, warm, well-perfused, no edema. NEUROLOGICAL: Cranial nerves II through XII grossly intact. Normal speech, gait not observed. PSYCH: Normal mood, normal affect. SKIN: Warm, dry, normal turgor, no rashes or lesions noted. LABS HOSPITAL COURSE: Date of Admission:06/30/19 Date of Discharge: 07/05/19 <Ramos Kiran - Last Filed: 07/05/19 12:02> Physical Exam: SUBJECTIVE: Patient seen and examined at bedside- no acute events overngiht- patient states that she is feeling better she dnenies any urinary symptoms- deneis any N/V fevers or chills OBJECTIVE: Vital Signs Period Temp Pulse Resp BP Sys/Morin Pulse Ox Last 24 Hr 97.7 F-99.0 F 60-75 18-20 144-157/69-94 98-98 PHYSICAL EXAM GENERAL: The patient is awake, alert, and fully oriented, in no acute distress EYES:PEERLA; EOMI; no scleral icterus NECK:no JVD; no lympghadenopathy LUNGS: CTA B/L; no rales, rhonchi or wheezing HEART: Regular rate and rhythm, S1, S2 without murmur, rub or gallop. ABDOMEN: soft NT/ND +bs in all 4 quadrants EXTREMITIES: 2+ pulses, warm, well-perfused, no edema. PSYCH: Normal mood, normal affect. SKIN: Warm, dry, normal turgor, no rashes or lesions noted. imaging: Status post recent hysterectomy, likely cervix sparing. Mild stranding/inflammatory changes and a small amount of free fluid in the pelvis compatible with recent surgery. Subcutaneous stranding in the lower anterior pelvic wall consistent with recent surgery with a small collection on the right measuring 2.4 x 1.6 cm. Dilated the proximal small bowel loops measuring up to 3 cm with air-fluid level likely on the basis of ileus. Cannot rule out early or low-grade distal small bowel obstruction. Mild left renal hydronephrosis and mild left hydroureter with wall thickening and enhancement as well as stranding of the surrounding fat. Findings are suspicious for left ureteritis. Urology consult is needed. U/S: no gallstones mild fatty infiltration Microbiology 07/03/19 14:45 Urine Culture - Final Urine - Urine Clean Catch NO GROWTH OBTAINED 06/30/19 00:05 Blood Culture - Final Blood - Peripheral Venous NO GROWTH AFTER 5 DAYS INCUBATION 06/30/19 00:05 Blood Culture - Final Blood - Peripheral Venous NO GROWTH AFTER 5 DAYS INCUBATION LABS HOSPITAL COURSE: Date of Admission:06/30/19 Sam Connor is a 43 year old female with a past medical history of hypertension, gestational diabetes, and recent hysterectomy (s/p 2 weeks ago), presenting with a week of dysuria, frequency, urgency, incomplete emptying, and a day's worth of fever and chills. she was found to have a UTI on UA with the above imaging- she was started on vanc/zosyn and as febrile for the first few days of her stay- her urine cx grew bernardo sensitive e-coli- we switched her to ceftriaxone however she began to have urinary sy,ptoms again upon switching so she was placed back on zosyn. her symptoms rsolved and she was sent home with 5 daays of levauqin with uro and gyhn follow yp Date of Discharge: 07/05/19 Minutes to complete discharge: 35 <Bibiana Perez - Last Filed: 07/05/19 12:23> Discharge Summary Current Active Problems Chronic hypertension (Acute) Complicated UTI (urinary tract infection) (Acute) S/P abdominal supracervical subtotal hysterectomy (Acute) - Home Medications Comprehensive Discharge Medication List: Ambulatory Orders Amlodipine Besylate [Norvasc -] 10 mg PO DAILY 06/30/19 Ferrous Sulfate 325 mg PO DAILY 06/30/19 Furosemide 40 mg PO DAILY 06/30/19 levoFLOXacin [Levaquin -] 500 mg PO DAILY #5 tablet 07/05/19 <Ramos Kiran - Last Filed: 07/05/19 12:02> Reason For Visit: COMPLICATED URINARY TRACT INFECTION Current Active Problems Chronic hypertension (Acute) Complicated UTI (urinary tract infection) (Acute) S/P abdominal supracervical subtotal hysterectomy (Acute) - Home Medications Comprehensive Discharge Medication List: Ambulatory Orders Amlodipine Besylate [Norvasc -] 10 mg PO DAILY 06/30/19 Ferrous Sulfate 325 mg PO DAILY 06/30/19 Furosemide 40 mg PO DAILY 06/30/19 levoFLOXacin [Levaquin -] 500 mg PO DAILY #5 tablet 07/05/19 <Grady Perezary - Last Filed: 07/05/19 12:23> Condition: Stable - Instructions Diet, Activity, Other Instructions: You came to the emergency room with complaints of urinary and kidney pain and were found to have a urinary tract infection. We did an ultrasound of your kidneys which showed mild inflammation and swelling of your left ureter. You were seen by both a urologist and a instructional resource teacher while you were here. We have been treating you with antibiotics, your symptoms have improved and you are stable to be discharged home. Please resume all of your home medications in addition: please take the antibiotic Levaquin 500 mg for 5 days (07/06-07/10) Please follow up with your primary care physician, Dr. Campbell within one week Please follow up with your instructional resource teacher, Dr. Crowe, within one week We are also referring you to a urologist, Dr. Goldman, to follow up with and follow up with within a week. * if you begin to experience worsening chest pains, shortness of breath, nausea/ vomiting, urinary pain please return to the emergency room immediately Referrals: Malinda Crowe [Other] - 1 Week Twin Hunt MD [Staff Physician] - 1 Week Disposition: HOME Problem List - Problems (1) Complicated UTI (urinary tract infection) Code(s): N39.0 - URINARY TRACT INFECTION, SITE NOT SPECIFIED (2) S/P abdominal supracervical subtotal hysterectomy Code(s): Z90.711 - ACQUIRED ABSENCE OF UTERUS WITH REMAINING CERVICAL STUMP <Bibiana Perez - Last Filed: 07/05/19 12:23> This patient is new to me today: Yes Date on this admission: 07/05/19 Emergency Visit: No Critical Care patient: No - Discharge Referral Referred to [facility] Med P.C.: No <Bibiana Perez - Last Filed: 07/05/19 12:23> ATTENDING PHYSICIAN STATEMENT I saw and evaluated the patient. I reviewed the resident's note and discussed the case with the resident. I agree with the resident's findings and plan as documented. SUBJECTIVE: OBJECTIVE: ASSESSMENT AND PLAN: <Ramos Kiran - Last Filed: 07/05/19 12:02> ATTENDING PHYSICIAN STATEMENT I saw and evaluated the patient. I reviewed the resident's note and discussed the case with the resident. I agree with the resident's findings and plan as documented. SUBJECTIVE: OBJECTIVE: ASSESSMENT AND PLAN: <Bibiana Perez - Last Filed: 07/05/19 12:23>
--- NOTE | 2019-07-05 12:01 | PN ---
Teaching Attending Note Name of Resident: Bibiana Perez ATTENDING PHYSICIAN STATEMENT I saw and evaluated the patient. I reviewed the resident's note and discussed the case with the resident. I agree with the resident's findings and plan as documented. SUBJECTIVE: Patient is feeling better with no acute distress, no nausea or vomiting, no further symptoms. OBJECTIVE: Vital Signs Temperature 98 F 07/05/19 10:00 Pulse Rate 60 07/05/19 10:00 Respiratory Rate 18 07/05/19 10:00 Blood Pressure 144/92 07/05/19 10:00 O2 Sat by Pulse Oximetry (%) 98 07/05/19 09:00 GENERAL: The patient is awake, alert, and fully oriented, in no acute distress. HEAD: Normal with no signs of trauma. EYES: PERRL, extraocular movements intact, sclera anicteric, conjunctiva clear. ENT: Ears normal, oropharynx clear without exudates, moist mucous membranes. NECK: Trachea midline, full range of motion, supple. LUNGS: Breath sounds equal, clear to auscultation bilaterally, no wheezes, no crackles, no accessory muscle use. HEART: Regular rate and rhythm, S1, S2 without murmur, rub or gallop. ABDOMEN: Soft, nontender, nondistended, normoactive bowel sounds, no guarding, no rebound, no hepatosplenomegaly, no masses. EXTREMITIES: 2+ pulses, warm, well-perfused, no edema. NEUROLOGICAL: Cranial nerves II through XII grossly intact. Normal speech, gait not observed. PSYCH: Normal mood, normal affect. SKIN: Warm, dry, normal turgor, no rashes or lesions noted CBCD WBC 4.7 K/mm3 (4.0-10.0) 07/04/19 07:55 RBC 3.59 M/mm3 (3.60-5.2) L 07/04/19 07:55 Hgb 11.0 GM/dL (10.7-15.3) 07/04/19 07:55 Hct 33.3 % (32.4-45.2) 07/04/19 07:55 MCV 92.7 fl (80-96) 07/04/19 07:55 MCHC 33.1 g/dl (32.0-36.0) 07/04/19 07:55 RDW 12.9 % (11.6-15.6) 07/04/19 07:55 Plt Count 279 K/MM3 (134-434) 07/04/19 07:55 MPV 8.6 fl (7.5-11.1) 07/04/19 07:55 CMP Sodium 142 mmol/L (136-145) 07/04/19 07:55 Potassium 4.2 mmol/L (3.5-5.1) 07/04/19 07:55 Chloride 109 mmol/L (98-107) H 07/04/19 07:55 Carbon Dioxide 26 mmol/L (21-32) 07/04/19 07:55 Anion Gap 8 MMOL/L (8-16) 07/04/19 07:55 BUN 8.0 mg/dL (7-18) 07/04/19 07:55 Creatinine 0.8 mg/dL (0.55-1.3) 07/04/19 07:55 Random Glucose 124 mg/dL (74-106) H 07/04/19 07:55 Calcium 9.1 mg/dL (8.5-10.1) 07/04/19 07:55 Total Bilirubin 0.3 mg/dL (0.2-1) 07/04/19 07:55 AST 19 U/L (15-37) 07/04/19 07:55 ALT 37 U/L (13-61) 07/04/19 07:55 Alkaline Phosphatase 102 U/L (45-117) 07/04/19 07:55 Total Protein 6.9 g/dl (6.4-8.2) 07/04/19 07:55 Albumin 2.6 g/dl (3.4-5.0) L 07/04/19 07:55 CARDIAC ENZYMES Troponin I < 0.02 ng/ml (0.00-0.05) 06/29/19 22:45 Current Medications Generic Name Dose Route Start Last Admin Trade Name Freq PRN Reason Stop Dose Admin Acetaminophen 650 mg 06/30/19 20:07 07/04/19 17:31 Tylenol - PO 650 mg Q6H PRN Administration FEVER Amlodipine Besylate 10 mg 07/05/19 10:00 07/05/19 09:42 Norvasc - PO 10 mg DAILY LUDWIG Administration Enoxaparin Sodium 40 mg 06/30/19 10:00 07/05/19 09:42 Lovenox - SQ 40 mg DAILY LUDWIG Administration Piperacillin Sod/Tazobactam 50 mls @ 100 mls/hr 07/03/19 18:00 07/05/19 09:42 Sod 3.375 gm/ Dextrose IVPB 100 mls/hr Q8H-IV LUDWIG Administration Protocol Home Medications Medication Instructions Recorded Amlodipine Besylate [Norvasc -] 10 mg PO DAILY 06/30/19 Ferrous Sulfate 325 mg PO DAILY 06/30/19 Furosemide 40 mg PO DAILY 06/30/19 levoFLOXacin [Levaquin -] 500 mg PO DAILY #5 tablet 07/05/19 CT of abdomen and pelvis: L hydro with hypodense areas in kidney and L hydroureter, but no stones. L pelvic wall collection ASSESSMENT AND PLAN: Patient is a 43 y/o lady with PMhx of recent hysterectomy due to having fibroids , HTN, gestational DM , who presented with abdominal pain and fever. she was found to have sepsis from UTI/Pylonephritis. # s/p acute sepsis due to having UTI and L pyelonephritis. s/p zosyn and on Levaquin for 5 more days, repeat urinary culture is negative. as per urologist no further intervention surgically. Patient was on zosyn then Rocephin switched back to zosyn since her symptoms were back. no further symptoms will discharge the patient home. as per Id, 5 more day s of levaquin 500mg. # H/o HTN: continue norvasc wsa on hold since was hypotensive # Acute Transaminitis : within normal limit now. #Hypokalemia: repleted, normal now dc patient home. with follow visit to [place], Dr. Stanley within a week.
== END 2019-07-05 14:29 | disposition home or self-care (01) | DRG 720 ==
LOC: JER 21:50 → JERBED 06-30 02:22 → J6S 06-30 13:38
PROVIDERS: ADMIT Internal Medicine; ATTEND Internal Medicine
DX: A41.89 Other specified sepsis (principal); I10 Essential (primary) hypertension; N39.0 Urinary tract infection, site not specified; R74.0 Nonspecific elevation of levels of transaminase and lactic acid dehydrogenase [LDH]; E66.9 Obesity, unspecified; Z68.41 Body mass index [BMI] 40.0-44.9, adult; E87.6 Hypokalemia; N10 Acute pyelonephritis; K76.0 Fatty (change of) liver, not elsewhere classified; R73.9 Hyperglycemia, unspecified; N13.30 Unspecified hydronephrosis; B96.20 Unspecified Escherichia coli [E. coli] as the cause of diseases classified elsewhere
CPT/HCPCS: 36415; 71045-TC-FY; 74177-TC; 76705-TC; 80048; 80053; 81003; 83036; 83605; 83735; 84484; 85025; 85027; 85610; 85651; 85730; 86140; 87040; 87070; 87086; 87186; 87205; 93005; 93010; 99284-25; J0131; J7030